=== PATIENT | male | born 1955 | race Two or more races ===

== ENCOUNTER 2017-04-08 20:47 | Emergency (ER) | payer OTHER ==
[~2017-04-08] VITALS: Ht 165.1 cm; Wt 69.4 kg
[~2017-04-08 20:47] MED LIST: ALBU0.084; CLOT1CRE82; CLOTRIMAZOLE; FLUT250M9; LEVAAER4; MOME100A; NITR0.4S31 SL; POT CHLORIDE 10 MEQ
[2017-04-08 20:50] VITALS: BP 165/95
[2017-04-08] MEDS ORDERED: IPRATROPIUM BROM 0.5 MG/2.5ML INH SOL NEB ONE (21:00)
[2017-04-08] MEDS ORDERED: ALBUTEROL SULF 2.5 MG/0.5ML(0.5%) NEB SOLN NEB ONE (21:00)
[2017-04-08 21:28] LABS: Basophils # (auto) 0.1 uL; Basophils % (auto) 0.5 % (0.0-2.0); Eosinophils # (auto) 0.2 uL; Eosinophils % (auto) 1.9 % (0.0-7.0); Hematocrit 44.6 % (41.0-53.0); Hemoglobin 15.1 g/dL (13.5-17.5); Lymphocytes # (auto) 1.5 uL; Lymphocytes % (auto) 13.8 % (10.0-50.0); Mean Corpuscular Hemoglobin 29.5 pg (28.0-32.0); Mean Corpuscular Volume 86.8 fL (80.0-100.0); Mean Platelet Volume 7.8 fL (7.4-10.4); Monocytes # (auto) 0.6 uL; Monocytes % (auto) 5.6 % (0.0-12.0); Neutrophils # (auto) 8.3 uL; Neutrophils % (auto) 78.2 % (37.0-80.0); Platelet Count (auto) 277 10^3/uL (140-450); Red Cell Distribution Width 13.4 % (11.6-16.0); White Blood Cell 10.6 10^3/uL (4.4-10.8)
[2017-04-08 21:34] LABS: INR 0.96 (0.9-1.15); Partial Thromboplastin Time 25.5 sec (22.64-33.71); Prothrombin Time 10.5 sec (9.37-12.3)
[2017-04-08 21:36] LABS: Albumin 3.8 g/dL (3.4-5.0); Anion Gap 10 (5-15); Aspartate Aminotransferase 15 U/L (15-37); BUN/Creatinine Ratio 9.4; Blood Urea Nitrogen 9 mg/dL (7-18); Calcium 8.8 mg/dL (8.5-10.1); Carbon Dioxide 27 mmol/L (21-32); Chloride 105 mmol/L (98-107); GFR African American 103 mL/min; GFR Non-African American 85 mL/min; Glucose 87 mg/dL (74-106); Magnesium 2.1 mg/dL (1.6-2.6); Potassium 3.4 mmol/L (3.5-5.1); Sodium 142 mmol/L (136-145)
[2017-04-08 21:45] LABS: Alkaline Phosphatase 110 U/L (45-117); Bilirubin, Total 0.5 mg/dL (0.2-1.0); Total Protein 7.2 g/dL (6.4-8.2)
== END 2017-04-09 00:13 | disposition left against medical advice (07) ==
LOC: ER 20:47
DX: R06.02 Shortness of breath (principal); R09.81 Nasal congestion; Z53.21 Procedure and treatment not carried out due to patient leaving prior to being seen by health care provider
CPT/HCPCS: 36415; 71010; 80053; 83735; 84484; 85025; 85610; 85730; 93005; 94640

== ENCOUNTER 2017-05-20 17:10 | Emergency (ER) | payer OTHER ==
[~2017-05-20] VITALS: Ht 165.1 cm; Wt 54.4 kg
[2017-05-20 17:33] VITALS: BP 140/92
[2017-05-20 18:04] LABS: Basophils # (auto) 0 uL; Basophils % (auto) 0.3 % (0.0-2.0); Eosinophils # (auto) 0.1 uL; Eosinophils % (auto) 1.5 % (0.0-7.0); Lymphocytes # (auto) 1.2 uL; Lymphocytes % (auto) 18.1 % (10.0-50.0); Mean Corpuscular Hemoglobin 29.7 pg (28.0-32.0); Mean Corpuscular Volume 87.3 fL (80.0-100.0); Mean Platelet Volume 7.4 fL (6.9-10.8); Monocytes # (auto) 0.5 uL; Monocytes % (auto) 6.9 % (0.0-12.0); Neutrophils % (auto) 73.2 % (37.0-80.0); Nucleated Red Blood Cells % 0.1 %; Platelet Count (auto) 281 10^3/uL (140-450); Red Cell Distribution Width 13.6 % (11.8-14.3); White Blood Cell 6.8 10^3/uL (4.4-10.8)
[2017-05-20 18:23] LABS: Chloride 109 mmol/L (98-107); Potassium 3.4 mmol/L (3.5-5.1); Sodium 144 mmol/L (136-145)
[2017-05-20 18:42] LABS: B-Type Natriuretic Peptide 10.32 pg/mL (0-100)
[2017-05-20 18:50] LABS: Temperature: 24.3 C (20.0-25.0)
[2017-05-20 19:07] LABS: Albumin 3.5 g/dL (3.4-5.0); Alkaline Phosphatase 118 U/L (45-117); Anion Gap 13 (5-15); Aspartate Aminotransferase 17 U/L (15-37); BUN/Creatinine Ratio 22.4; Bilirubin, Total 0.4 mg/dL (0.2-1.0); Blood Urea Nitrogen 19 mg/dL (7-18); Calcium 8.4 mg/dL (8.5-10.1); Carbon Dioxide 22 mmol/L (21-32); GFR African American 118 mL/min; GFR Non-African American 98 mL/min; Glucose 97 mg/dL (74-106); Magnesium 2.4 mg/dL (1.6-2.6)
== END 2017-05-20 19:47 | disposition left against medical advice (07) ==
LOC: ER 17:10 → EDBD 17:10 → ER 19:47
DX: R07.89 Other chest pain (principal); Z53.21 Procedure and treatment not carried out due to patient leaving prior to being seen by health care provider
CPT/HCPCS: 36415; 80053; 83735; 83880; 84443; 84484; 85025; 93005

== ENCOUNTER 2017-12-26 21:36 | Emergency (ER) | payer OTHER ==
[~2017-12-26] VITALS: Ht 165.1 cm; Wt 70.3 kg
[2017-12-26] MEDS ORDERED: ASPirin 81 mg TAB PO ONE (22:15)
[2017-12-26 22:30] LABS: Basophils # (auto) 0 uL; Basophils % (auto) 0.6 % (0.0-2.0); Eosinophils # (auto) 0.2 uL; Eosinophils % (auto) 3.1 % (0.0-7.0); Hematocrit 42.7 % (41.0-53.0); Hemoglobin 14.4 g/dL (13.5-17.5); Lymphocytes # (auto) 1.7 uL; Lymphocytes % (auto) 26.5 % (10.0-50.0); Mean Corpuscular Hemoglobin 29.9 pg (28.0-32.0); Mean Corpuscular Hgb Conc. 33.8 g/dL (32.0-36.0); Mean Corpuscular Volume 88.4 fL (80.0-100.0); Monocytes # (auto) 0.5 uL; Monocytes % (auto) 7.5 % (0.0-12.0); Neutrophils # (auto) 4.1 uL; Neutrophils % (auto) 62.3 % (37.0-80.0); Nucleated Red Blood Cells % 0.1 %; Platelet Count (auto) 292 10^3/uL (140-450); Red Blood Cells 4.83 10^6/uL (4.5-5.90); White Blood Cell 6.6 10^3/uL (4.4-10.8)
[2017-12-26 22:39] LABS: INR 0.97 (0.9-1.15)
[2017-12-26 22:45] LABS: Alanine Aminotransferase 26 U/L (16-61); Albumin 3.5 g/dL (3.4-5.0); Anion Gap 10 (5-15); Aspartate Aminotransferase 17 U/L (15-37); BUN/Creatinine Ratio 18.8; Blood Urea Nitrogen 21 mg/dL (7-18); Calcium 8.6 mg/dL (8.5-10.1); Carbon Dioxide 23 mmol/L (21-32); Chloride 110 mmol/L (98-107); GFR African American 86 mL/min; GFR Non-African American 71 mL/min; Glucose 99 mg/dL (74-106); Magnesium 2.2 mg/dL (1.6-2.6); Potassium 3.7 mmol/L (3.5-5.1); Sodium 143 mmol/L (136-145)
[2017-12-26 22:49] LABS: Alkaline Phosphatase 96 U/L (45-117); Bilirubin, Total 0.4 mg/dL (0.2-1.0); Total Protein 7.1 g/dL (6.4-8.2)
[2017-12-26 23:01] LABS: Urine Amorphous Crystal FEW /hpf (None Seen); Urine Bacteria NONE SEEN /hpf (None Seen); Urine Blood 2+ /uL (Negative); Urine Specific Gravity 1.025 (1.001-1.035); Urine WBC 1 /hpf (0 - 3)
[2017-12-26] MEDS ORDERED: PANTOPRAZOLE 40 MG/10 ML VIAL IV ONE (23:30)
[2017-12-26 23:47] VITALS: BP 164/62
[2017-12-27] MEDS ORDERED: NITROGLYCERIN 0.4 MG SL TAB SL ONE (10:00)
== END 2017-12-27 00:06 | disposition home or self-care (01) ==
LOC: ER 21:37
DX: I25.10 Atherosclerotic heart disease of native coronary artery without angina pectoris (principal); J45.909 Unspecified asthma, uncomplicated; K21.9 Gastro-esophageal reflux disease without esophagitis; I25.2 Old myocardial infarction; R06.02 Shortness of breath; Z86.73 Personal history of transient ischemic attack (TIA), and cerebral infarction without residual deficits
CPT/HCPCS: 36415; 71045; 80053; 81001; 83735; 83880; 84443; 84484; 85025; 85379; 85610; 85730; 94761; 96374; 99285; C9113; J7030

== ENCOUNTER 2019-10-09 15:49 | Inpatient (IN) | payer OTHER ==
[~2019-10-09] VITALS: Ht 157.5 cm; Wt 62.0 kg
[2019-10-09] MEDS: MIDAZOLAM DRIP 50 mg/50mL 50 ML IV SCH (15:56)
[2019-10-09] MEDS: PROPOFOL 100 ML IV SCH (16:03)
[2019-10-09 16:20] LABS: Urine Amorphous Crystal FEW /hpf (None Seen); Urine Bacteria FEW /hpf (None Seen); Urine Blood 2+ /uL (Negative); Urine Hyaline Cast FEW /lpf (0 - 2); Urine Mucus FEW (None Seen); Urine Specific Gravity 1.016 (1.001-1.035); Urine WBC 3 /hpf (0 - 3)
[2019-10-09] MEDS ORDERED: ALBUTEROL SULF 2.5 MG/0.5ML(0.5%) NEB SOLN ONE (16:30)
[2019-10-09] MEDS ORDERED: ETOMIDATE (2MG/ML) 20ML VIAL IV ONE (16:30)
[2019-10-09] MEDS ORDERED: IPRATROPIUM BROM 0.5 MG/2.5ML INH SOL NEB ONE (16:30)
[2019-10-09] MEDS ORDERED: ALBUTEROL SULF 2.5 MG/0.5ML(0.5%) NEB SOLN NEB ONE ×2 (16:30→17:45)
[2019-10-09] MEDS ORDERED: IPRATROPIUM BROM 0.5 MG/2.5ML INH SOL ONE (16:31)
[2019-10-09] MEDS ORDERED: SODIUM CHLORIDE 0.9% 1,000 ML IV ONE ×2 (16:33)
[2019-10-09] MEDS ORDERED: NOREPINEPHRINE 8 MG/250ML KIT 250 ML IV ONE (16:44)
[2019-10-09] MEDS: NOREPINEPHRINE 8 MG/250ML KIT 250 ML IV SCH ×2 (16:49→17:06)
[2019-10-09 17:07] LABS: Basophils # (auto) 0 10 ^3/uL (0-0.2); Basophils % (auto) 0.4 % (0.0-2.0); Eosinophils # (auto) 0.1 10 ^3/uL (0-0.8); Eosinophils % (auto) 1.3 % (0.0-7.0); Hematocrit 43.9 % (41.0-53.0); Hemoglobin 14.8 g/dL (13.5-17.5); Lymphocytes # (auto) 1.7 10 ^3/uL (0.4-5.4); Lymphocytes % (auto) 16.2 % (10.0-50.0); Mean Corpuscular Hemoglobin 29.6 pg (28.0-32.0); Mean Corpuscular Hgb Conc. 33.6 g/dL (32.0-36.0); Mean Corpuscular Volume 88.1 fL (80.0-100.0); Monocytes # (auto) 0.3 10 ^3/uL (0-1.3); Monocytes % (auto) 2.5 % (0.0-12.0); Neutrophils # (auto) 8.3 10 ^3/uL (1.6-8.6); Neutrophils % (auto) 79.6 % (37.0-80.0); Nucleated Red Blood Cells % 0.1 %; Platelet Count (auto) 365 10^3/uL (140-450); Red Blood Cells 4.98 10^6/uL (4.5-5.90); Red Cell Distribution Width 14.5 % (11.8-14.3); White Blood Cell 10.4 10^3/uL (4.4-10.8)
[2019-10-09 17:21] LABS: INR 1.04 (0.9-1.15); Partial Thromboplastin Time 25.2 sec (23.64-32.05)
[2019-10-09 17:22] LABS: Albumin 3.6 g/dL (3.4-5.0); Calcium 8.4 mg/dL (8.5-10.1)
[2019-10-09 17:27] LABS: BUN/Creatinine Ratio 10.7; Bilirubin, Total 0.4 mg/dL (0.2-1.0); Total Protein 7.3 g/dL (6.4-8.2)
[2019-10-09 17:36] LABS: Potassium 6.9 mmol/L (3.5-5.1)
[2019-10-09] MEDS ORDERED: CALCIUM GLUC 4.65meq/50ml D5AE 50 ML IV ONE (17:45)
[2019-10-09] MEDS ORDERED: SODIUM BICARBONATE 8.4% INJ 50ML SYRINGE IV ONE (17:45)
[2019-10-09] MEDS ORDERED: FUROSEMIDE 20 MG/2 ML VIAL IV ONE (17:45)
[2019-10-09] MEDS ORDERED: InsuLIN REG 1unit/0.01ml Soln (100units/ml) IV ONE (17:45)
[2019-10-09] MEDS ORDERED: SODIUM ZIRCONIUM CYCL 10 GM PAK PO ONE (17:45)
[2019-10-09] MEDS ORDERED: DEXTROSE (50%) 50ML SYRG IV ONE (17:45)
[2019-10-09] MEDS ORDERED: HEPARIN SODIUM (PORCINE) 5000 UNITS/ML 1ML VIAL IV ONE (18:15)
[2019-10-09 18:31] VITALS: BP 130/86
[2019-10-09 19:09] VITALS: BP 120/83
[2019-10-09] MEDS ORDERED: SODIUM BICARBONATE 8.4 % INJ 50ML VIAL IV ONE (19:15)
[2019-10-09 19:46] VITALS: BP 104/74
[2019-10-09 22:20] VITALS: BP 106/67
[2019-10-10] VITALS (11 sets, daily range): BP systolic 100–123; BP diastolic 64–81
[2019-10-10] MEDS ORDERED: HEPARIN DRIP/D5W 100UNITS/ML 250 ML IV SCH (03:19)
[2019-10-10] MEDS: SODIUM CHLORIDE 0.9% 1,000 ML IV SCH ×2 (03:41→14:31)
[2019-10-10] MEDS ORDERED: NITROGLYCERIN 0.4 MG SL TAB SL PRN (03:45)
[2019-10-10] MEDS ORDERED: ONDANSETRON HCL 4 MG/2 ML VIAL IV PRN (03:45)
[2019-10-10] MEDS ORDERED: MORPHINE SULF INJ 2 MG/ML SYRINGE 1ML IV PRN (03:45)
[2019-10-10] MEDS ORDERED: MORPHINE SULFATE 4 MG/ML SYR/VIAL IV PRN (03:45)
[2019-10-10] MEDS ORDERED: HEPARIN SODIUM (PORCINE) 5000 UNITS/ML 1ML VIAL ONE (04:10)
[2019-10-10 04:23] LABS: Basophils # (auto) 0 10 ^3/uL (0-0.2); Basophils % (auto) 0.2 % (0.0-2.0); Eosinophils # (auto) 0 10 ^3/uL (0-0.8); Eosinophils % (auto) 0.2 % (0.0-7.0); Hematocrit 41.1 % (41.0-53.0); Hemoglobin 13.9 g/dL (13.5-17.5); Lymphocytes # (auto) 1.2 10 ^3/uL (0.4-5.4); Lymphocytes % (auto) 9.8 % (10.0-50.0); Mean Corpuscular Hemoglobin 29.2 pg (28.0-32.0); Mean Corpuscular Hgb Conc. 33.9 g/dL (32.0-36.0); Monocytes # (auto) 0.8 10 ^3/uL (0-1.3); Monocytes % (auto) 6.3 % (0.0-12.0); Neutrophils # (auto) 10.2 10 ^3/uL (1.6-8.6); Neutrophils % (auto) 83.5 % (37.0-80.0); Platelet Count (auto) 371 10^3/uL (140-450); Red Blood Cells 4.78 10^6/uL (4.5-5.90); Red Cell Distribution Width 14.6 % (11.8-14.3); White Blood Cell 12.2 10^3/uL (4.4-10.8)
[2019-10-10 04:30] LABS: Potassium 3.4 mmol/L (3.5-5.1)
[2019-10-10 04:38] LABS: Albumin 3.2 g/dL (3.4-5.0); BUN/Creatinine Ratio 17.5; Bilirubin, Total 0.5 mg/dL (0.2-1.0); Calcium 8.1 mg/dL (8.5-10.1); Total Protein 6.4 g/dL (6.4-8.2)
[2019-10-10] MEDS: SODIUM CHLOR 0.9% PF (SALINE LOCK) 10ML VIAL/SYR IV SCH ×3 (06:00→21:41)
--- NOTE | 2019-10-10 06:20 | NUR ---
Respiratory note: RECEIVED PATIENT ON V12 ESPRIT VENT ORALLY INTUBATED WITH AN 8.0 ETT SECURED VIA DILAN AT THE 23CM MARKING AT THE LIP, AND MECHANICALLY VENTILATED WITH THE CHARTED SETTINGS. SPO2 99%, LUNG SOUNDS GREATLY DIM T/O, NO SECRETIONS WHEN SUCTIONED. SKIN IS WARM/DRY TO THE TOUCH AND IS INTACT NEAR DILAN SITE. THERE IS A NGT IN THE RIGHT NARE AND SECURED TO THE ETT, AND A TRIPLE LUMEN CENTRAL LINE IS PLACED IN THE RIGHT IJ. NO OTHER ADVANCE ACCESS LINES NOTE. NO NEW AM CXR TO ASSESS. PATIENT IS RESPONSIVE TO TACTILE STIMULI BUT UNRESPONSIVE TO VERBAL STIMULI, AND IS SEDATED ON VERSED AND PROPOFOL DRIPS. HE IS AGITATED AT THIS TIME, WITH CONSTANTLY HIGH PIP POST SUCTIONING. VENT IS PLUGGED INTO RED OUTLET AND ALL ALARMS ARE SET AND AUDIBLE. WILL CONTINUE TO ASSESS PATIENT WELL VENTILATOR FUNCTION.
[2019-10-10] MEDS ORDERED: POTASSIUM CHLORIDE 20 MEQ, LIDOCAINE 1% (LOCAL ANESTH.) 2 ML in SODIUM CHL 0.9% 100 ML IV ONE (10:00)
[2019-10-10] MEDS ORDERED: DEXTROSE (50%) 50ML SYRG IV PRN (10:00)
[2019-10-10] MEDS ORDERED: cefTRIAXone 1GM/50ML D5W 50 ML IV SCH (10:00)
[2019-10-10] MEDS ORDERED: PANTOPRAZOLE 40 MG/10 ML VIAL INJ IV ONE (10:15)
[2019-10-10] MEDS: AZITHROMYCIN 500MG/ 250ML 250 ML IV SCH (10:38)
[2019-10-10 11:01] LABS: INR 1.03 (0.9-1.15); Partial Thromboplastin Time 27.8 sec (23.64-32.05)
[2019-10-10 11:57] LABS: INR 1.12 (0.9-1.15); Partial Thromboplastin Time 64.1 sec (23.64-32.05)
[2019-10-10] MEDS: ACCU-CHEK COMFORT CURVE STRIP VI SCH ×2 (12:00→18:07)
[2019-10-10] MEDS: InsuLIN REG 1unit/0.01ml Soln (100units/ml) SC SCH ×2 (12:00→18:00)
[2019-10-10] MEDS: HEPARIN DRIP/D5W 100UNITS/ML 250 ML IV SCH (12:10)
[2019-10-10] MEDS ORDERED: ACETAMINOPHEN 650 mg PER 20 mL UD GT ONE ×2 (14:00→21:00)
[2019-10-10] MEDS: MIDAZOLAM DRIP 50 mg/50mL 50 ML IV SCH (16:39)
[2019-10-10] MEDS: PROPOFOL 100 ML IV SCH (17:09)
[2019-10-10 17:25] LABS: INR 1.16 (0.9-1.15)
[2019-10-10 17:49] LABS: Partial Thromboplastin Time 112.6 sec (23.64-32.05)
[2019-10-10] MEDS: ALBUTEROL SULF 2.5 MG/0.5ML(0.5%) NEB SOLN NEB PRN (22:07)
[2019-10-10] MEDS: IPRATROPIUM BROM 0.5 MG/2.5ML INH SOL NEB PRN (22:07)
[2019-10-11 00:20] VITALS: BP 132/83
[2019-10-11] MEDS: SODIUM CHLORIDE 0.9% 1,000 ML IV SCH ×3 (00:37→19:41)
[2019-10-11] MEDS: ACCU-CHEK COMFORT CURVE STRIP VI SCH ×4 (00:37→16:38)
[2019-10-11 01:15] LABS: INR 1.14 (0.9-1.15); Partial Thromboplastin Time 62.7 sec (23.64-32.05)
[2019-10-11 02:00] VITALS: BP 114/65
[2019-10-11 04:10] VITALS: BP 120/69
[2019-10-11 05:29] LABS: Basophils # (auto) 0 10 ^3/uL (0-0.2); Basophils % (auto) 0.3 % (0.0-2.0); Eosinophils # (auto) 0.3 10 ^3/uL (0-0.8); Eosinophils % (auto) 2.7 % (0.0-7.0); Hematocrit 37.3 % (41.0-53.0); Hemoglobin 12.5 g/dL (13.5-17.5); Lymphocytes # (auto) 1.2 10 ^3/uL (0.4-5.4); Lymphocytes % (auto) 10.1 % (10.0-50.0); Mean Corpuscular Hgb Conc. 33.5 g/dL (32.0-36.0); Mean Corpuscular Volume 86.4 fL (80.0-100.0); Monocytes # (auto) 0.8 10 ^3/uL (0-1.3); Monocytes % (auto) 6.7 % (0.0-12.0); Neutrophils # (auto) 9.2 10 ^3/uL (1.6-8.6); Neutrophils % (auto) 80.2 % (37.0-80.0); Platelet Count (auto) 241 10^3/uL (140-450); Red Blood Cells 4.31 10^6/uL (4.5-5.90); Red Cell Distribution Width 14.5 % (11.8-14.3); White Blood Cell 11.4 10^3/uL (4.4-10.8)
[2019-10-11 05:42] LABS: Potassium 3.2 mmol/L (3.5-5.1)
[2019-10-11 05:46] LABS: Albumin 2.4 g/dL (3.4-5.0); BUN/Creatinine Ratio 11.6
[2019-10-11 05:58] LABS: Bilirubin, Total 0.7 mg/dL (0.2-1.0); Total Protein 5.8 g/dL (6.4-8.2)
[2019-10-11] MEDS: InsuLIN REG 1unit/0.01ml Soln (100units/ml) SC SCH ×4 (06:00→16:38)
[2019-10-11] MEDS ORDERED: ACETAMINOPHEN 650 mg PER 20 mL UD GT PRN (06:00)
[2019-10-11] MEDS: SODIUM CHLOR 0.9% PF (SALINE LOCK) 10ML VIAL/SYR IV SCH ×3 (06:12→22:12)
[2019-10-11 06:15] VITALS: BP 95/59
[2019-10-11 07:36] VITALS: BP 101/65
[2019-10-11 07:46] LABS: INR 1.12 (0.9-1.15)
--- NOTE | 2019-10-11 08:20 | NUR ---
Respiratory note: CPAP TRIAL BEGAN AT 0820. PT PLACED ON CPAP 5 PS 8 FI02 30%.
--- NOTE | 2019-10-11 09:00 | NUR ---
PT CPAP TRIAL. VC-600ML, NIF- -38, RSBI 23, LEAK [address] URBANO NOTIFIED AND GIVEN ORDERS TO EXTUBATE TO COOL AEROSOL 8 LPM, 30 % FI02.
[2019-10-11] MEDS: cefTRIAXone 1GM/50ML D5W 50 ML IV SCH (09:38)
[2019-10-11 09:39] LABS: INR 1.09 (0.9-1.15); Partial Thromboplastin Time 37.5 sec (23.64-32.05)
[2019-10-11] MEDS: PANTOPRAZOLE 40 MG/10 ML VIAL INJ IV SCH (09:42)
[2019-10-11] MEDS: AZITHROMYCIN 500MG/ 250ML 250 ML IV SCH (09:42)
[2019-10-11] MEDS: HEPARIN DRIP/D5W 100UNITS/ML 250 ML IV SCH (10:20)
[2019-10-11] MEDS: ASPirin 81 mg TAB PO SCH (12:22)
[2019-10-11] MEDS ORDERED: POTASSIUM CHLORIDE 20 MEQ, LIDOCAINE 1% (LOCAL ANESTH.) 2 ML in SODIUM CHL 0.9% 100 ML IV ONE (12:45)
[2019-10-11] MEDS ORDERED: POTASSIUM EFFERVESENT TAB 25 MEQ PO ONE (16:00)
[2019-10-11 16:46] LABS: INR 1.07 (0.9-1.15)
[2019-10-11] MEDS ORDERED: ZOLPIDEM TARTRATE 5 MG TAB PO PRN (17:45)
[2019-10-11] MEDS: LORazepam 0.5 MG TAB PO PRN (17:56)
[2019-10-11] MEDS: IPRATROPIUM BROM 0.5 MG/2.5ML INH SOL NEB PRN (22:23)
[2019-10-11] MEDS: ALBUTEROL SULF 2.5 MG/0.5ML(0.5%) NEB SOLN NEB PRN (22:23)
--- NOTE | 2019-10-11 23:47 | NUR ---
Telemetry admit from ER KEARA SANTOS admitted to Telemetry unit after SBAR received. Patient oriented to Haydee Armas primary RN, unit, room, bed, and unit policies regarding patient care and visiting hours. Patient now on continuous telemetry monitoring, tele box # [[id number]] and telemetry reading on arrival to unit is [ST 104]. Patient placed on bedside oxygen, weighed by bedscale and encouraged to call if they need something. All questions and concerns addressed, patient verbalized understanding. Note: PATIENT CAME UP TO FLOOR VIA HOSPITAL BED WITH NO TYLER CATH. REMOVED PATIENT FROM RECTAL THERMOMETER. NO OPEN WOUND NOTED. PARTIAL LINEN CHANGED. PATIENT IS ON HEPARIN DRIP @ 9ML/HR. ONE FAMILY AT BEDSIDE. BED IN LOWEST POSITION WITH SIDE RAILS UP X 2. CALL LEE WITHIN REACH. ALARM ON. CONTINUE TO MONITOR FOR CHANGES Q1H AND PRN.
--- NOTE | 2019-10-11 23:55 | NUR ---
PHLEBOTOMY AT BEDSIDE.
[2019-10-12] VITALS (9 sets, daily range): BP systolic 110–140; BP diastolic 67–79
[2019-10-12 00:11] LABS: INR 1.05 (0.9-1.15)
[2019-10-12] MEDS: ACCU-CHEK COMFORT CURVE STRIP VI SCH ×5 (00:23→23:55)
--- NOTE | 2019-10-12 00:25 | NUR ---
ACCU-CHECK, BS 78. NO COVERAGE. CONTINUE TO MONITOR.
--- NOTE | 2019-10-12 00:46 | NUR ---
LAB RESULT OUT, NO APTT RESULT OUT, CALLED LAB CENTER, ADD APTT ON THE TEST, WAITING FOR RESULT. CONTINUE TO MONITOR.
[2019-10-12] MEDS ORDERED: ALBUAER3 IN (01:00)
[2019-10-12] MEDS ORDERED: PRED-158 PO (01:00)
--- NOTE | 2019-10-12 01:13 | NUR ---
APTT RESULT 47.2, INCREASED 2ML/HR PER PROTOCOL. CONTINUE TO MONITOR.
[2019-10-12] MEDS: IPRATROPIUM BROM 0.5 MG/2.5ML INH SOL NEB PRN ×2 (02:04→11:53)
[2019-10-12] MEDS: ALBUTEROL SULF 2.5 MG/0.5ML(0.5%) NEB SOLN NEB PRN ×2 (02:04→11:54)
--- NOTE | 2019-10-12 02:14 | NUR ---
PATIENT C/O HARD TO BREATH WITH PRESSURE ON HIS CHEST, PATIENT SHOWED SOB NOW AND STATED THE OXYGEN MASK DID NOT HELP. VITALS, TEMP 98.7, HR 101, RR 24, BP 140/75, O2 SAT 99% ON 10L/35% COOL HUMIDIFIER MASK. EKG DONE, SHOWED SR 97. RT PAGED, CAME CHECKED PATIENT AND BREATHING TREATMENT PROVIDED. PATIENT STATED MORE BETTER. BUT STILL FEELING PRESSURE ON THE CHEST. WILL PAGE HOSPITALIST. CONTINUE TO MONITOR.
--- NOTE | 2019-10-12 02:19 | NUR ---
HOSPITALIST Called/paged RASHAD ORTIZ called re:PATIENT STARTED SOB AND PRESSURE ON CHEST. Waiting for call back. Continue care.
--- NOTE | 2019-10-12 02:32 | NUR ---
PATIENT TRIED, AND URINATED 500ML CLEAR AND YELLOW URINE. PATIENT STATED MUCH MORE BETTER NOW. NO PRESSURE ON HIS CHEST AFTER BREATHING TREATMENT. URINE SAMPLE COLLECTED AND SENT. CONTINUE TO MONITOR.
--- NOTE | 2019-10-12 02:52 | NUR ---
HOSPITALIST returned call RASHAD ORTIZ returned call, updated on patient status and reason for call, orders received. D/C NS 100ML/HR IVF. Continue care.
[2019-10-12 03:07] LABS: Protein, Urine 14.1 mg/dL (0.0-11.9)
[2019-10-12 03:15] LABS: Urine Bacteria FEW /hpf (None Seen); Urine Blood 2+ /uL (Negative); Urine Mucus FEW (None Seen); Urine Specific Gravity 1.013 (1.001-1.035); Urine WBC 5 /hpf (0 - 3)
[2019-10-12 05:49] LABS: Basophils # (auto) 0 10 ^3/uL (0-0.2); Basophils % (auto) 0.4 % (0.0-2.0); Eosinophils # (auto) 0.3 10 ^3/uL (0-0.8); Eosinophils % (auto) 3.4 % (0.0-7.0); Hematocrit 32.7 % (41.0-53.0); Hemoglobin 11.4 g/dL (13.5-17.5); Lymphocytes # (auto) 1.2 10 ^3/uL (0.4-5.4); Lymphocytes % (auto) 14.1 % (10.0-50.0); Mean Corpuscular Hemoglobin 30.3 pg (28.0-32.0); Mean Corpuscular Volume 86.6 fL (80.0-100.0); Monocytes # (auto) 0.5 10 ^3/uL (0-1.3); Monocytes % (auto) 6.5 % (0.0-12.0); Neutrophils # (auto) 6.3 10 ^3/uL (1.6-8.6); Neutrophils % (auto) 75.6 % (37.0-80.0); Platelet Count (auto) 218 10^3/uL (140-450); Red Blood Cells 3.77 10^6/uL (4.5-5.90); Red Cell Distribution Width 14.6 % (11.8-14.3); White Blood Cell 8.3 10^3/uL (4.4-10.8)
[2019-10-12] MEDS: InsuLIN REG 1unit/0.01ml Soln (100units/ml) SC SCH ×5 (06:00→23:55)
[2019-10-12 06:06] LABS: Potassium 3.1 mmol/L (3.5-5.1)
[2019-10-12] MEDS: SODIUM CHLOR 0.9% PF (SALINE LOCK) 10ML VIAL/SYR IV SCH ×3 (06:07→21:45)
--- NOTE | 2019-10-12 06:08 | NUR ---
ACCU-CHECK, BS 87. NO COVERAGE. CONTINUE TO MONITOR.
[2019-10-12 06:29] LABS: Albumin 2.2 g/dL (3.4-5.0); Bilirubin, Total 0.5 mg/dL (0.2-1.0); Calcium 7.8 mg/dL (8.5-10.1); Total Protein 5.7 g/dL (6.4-8.2)
[2019-10-12 06:39] LABS: BUN/Creatinine Ratio 12.1
--- NOTE | 2019-10-12 06:53 | NUR ---
CALLED LAB CENTER TO REMIND THE LAB TEST PTPTT DUE AT 0700. CONTINUE TO MONITOR.
[2019-10-12 07:12] LABS: INR 1.05 (0.9-1.15); Partial Thromboplastin Time 61.5 sec (23.64-32.05)
--- NOTE | 2019-10-12 07:15 | NUR ---
Opening shift note Assumed care of patient from NOC RN. Patient resting in bed, AOx4, No S/S of distress, SOB or pain,bed is in lowest locked position, and call light is within reach.Heparin drip infusing at 11ml/hr,Oxygen at 10 liters 35% Aerosol mask,Updated patient on plan of care and patient verbalized understanding. Will continue to monitor Q1hr and PRN.
--- NOTE | 2019-10-12 07:30 | NUR ---
PTT result available,61.5,no changes,drip kept at 11 ml/hr.
--- NOTE | 2019-10-12 08:15 | NUR ---
Patient requesting to go rest room to have a bowel movement,Paged RT,per RT can put patient on a cannula at 3 liters, patient connected to 3 liters cannula long tubing, ambulated to rest room gait steady,no distress no discomfort. Addendum: 10/12/19 at 1054 by Yareli Davis RN RN @ 4 liters not 3 liters
--- NOTE | 2019-10-12 08:30 | NUR ---
PATIENT BACK TO BED,TOLERATED ACTIVITY,AND OXYGEN AT 3 LITERS ,NO DISTRESS,NO DISCOMFORT,DANGLED AT BEDSIDE TO EAT BREAKFAST. Addendum: 10/12/19 at 1054 by Yareli Davis RN RN @ 4 liters not 3 liters
--- NOTE | 2019-10-12 09:00 | NUR ---
Juan AT BEDSIDE O2 SATURATION CHECKED,SHOWING 98% AT 3 LITERS NASAL CANNULA Addendum: 10/12/19 at 1053 by Yareli Davis RN RN @ 4liters not 3 liters
--- NOTE | 2019-10-12 09:10 | NUR ---
Respiratory note: ASSESSED PT FOR PRN TX, PATIENT WAS AWAKE AND ALERT, NO RESP DISTRESS NOTED. HR 91, RR 20, SPO2 99% ON 4L N/C. TITRATED FIO2 TO 2L, RN INFORMED. NO INDICATION FOR TX AT THIS TIME. PT KNOWS TO HAVE RT PAGED IF TX IS NEEDED.
[2019-10-12] MEDS: ASPirin 81 mg TAB PO SCH (09:57)
[2019-10-12] MEDS: PANTOPRAZOLE 40 MG/10 ML VIAL INJ IV SCH (09:57)
[2019-10-12] MEDS: cefTRIAXone 1GM/50ML D5W 50 ML IV SCH (09:57)
[2019-10-12] MEDS: AZITHROMYCIN 250 MG TAB PO SCH (09:58)
--- NOTE | 2019-10-12 11:45 | NUR ---
DR. BURLESON INFORMED OF POTASSIUM 3.1,RECEIVED ORDER
[2019-10-12] MEDS ORDERED: POTASSIUM EFFERVESENT TAB 25 MEQ PO ONE (12:00)
--- NOTE | 2019-10-12 15:00 | NUR ---
DANGLES AT BEDSIDE AD MARIANGEL,OXYGEN REMAINS AT 2 LITERS NASAL CANNULA NO SOB NO DISTRESS.
[2019-10-12] MEDS: LORazepam 0.5 MG TAB PO PRN (17:57)
[2019-10-12] MEDS ORDERED: POTASSIUM CHL 20 Meq TABLET PO ONE (18:45)
--- NOTE | 2019-10-12 19:19 | NUR ---
STATUS UNCHANGED NO DISTRESS, NO DISCOMFORT.REPORT GIVEN TO INCOMING NOC SHIFT RN
--- NOTE | 2019-10-12 19:30 | NUR ---
RECEIVED PATIENT FROM DAY SHIFT RN. PATIENT RESTING IN BED. NO S/S OF DISTRESS NOTED. DENIED PAIN FOR NOW. REINFORCED NPO AFTER MIDNIGHT FOR PROCEDURE TOMORROW. PATIENT VERBALIZED UNDERSTANDING. POC INSTRUCTED AND ENCOURAGED PATIENT TO CALL FOR [employer] IF NEEDED. BED IN LOWEST POSITION WITH SIDE RAILS UP X 2. CALL LEE WITHIN REACH. ALARM ON. CONTINUE TO MONITOR FOR CHANGES Q1H AND PRN.
--- NOTE | 2019-10-12 20:00 | NUR ---
Respiratory note: PT ASSESSED FOR PRN MED NEB TX. HR 89, RR 16, SPO2 97% ON 2L NC. NO SIGNS OF ANY RESPIRATORY DISTRESS NOTED. ADVISED PT TO CALL IF TX IS NEEDED. RT NAME AND PAGER NUMBER WRITTEN O N PT'S BOARD.
--- NOTE | 2019-10-12 21:46 | NUR ---
RIJ CENTRAL LINE FLUSHED WITH NS. PATIENT TOLERATED WELL. DENIED PAIN FOR NOW. CONTINUE TO MONITOR.
--- NOTE | 2019-10-12 23:56 | NUR ---
ACCU-CHECK, BS 80. NO COVERAGE. CONTINUE TO MONITOR.
--- NOTE | 2019-10-13 00:13 | NUR ---
RT PAGED FOR BREATHING TREATMENT SINCE PATIENT C/O FEELING ASTHMA ATTACH AFTER BACK FROM BATHROOM. CONTINUE TO MONITOR.
--- NOTE | 2019-10-13 00:14 | NUR ---
REINFORCED PATIENT NPO FROM NOW ON. WATER AND FOOD REMOVED FROM BEDSIDE. PATIENT VERBALIZED UNDERSTANDING. CONTINUE TO MONITOR.
--- NOTE | 2019-10-13 00:16 | NUR ---
RT AT BEDSIDE.
[2019-10-13] MEDS: IPRATROPIUM BROM 0.5 MG/2.5ML INH SOL NEB PRN ×2 (00:36→14:00)
[2019-10-13] MEDS: ALBUTEROL SULF 2.5 MG/0.5ML(0.5%) NEB SOLN NEB PRN ×2 (00:36→14:00)
--- NOTE | 2019-10-13 03:12 | NUR ---
PATIENT SLEEPING. NO S/S OF DISTRESS NOTED. BREATHING EVEN AND UNLABORED. CONTINUE TO MONITOR.
[2019-10-13 05:03] LABS: Basophils # (auto) 0 10 ^3/uL (0-0.2); Basophils % (auto) 0.5 % (0.0-2.0); Eosinophils # (auto) 0.3 10 ^3/uL (0-0.8); Eosinophils % (auto) 6.7 % (0.0-7.0); Hematocrit 34.8 % (41.0-53.0); Hemoglobin 11.9 g/dL (13.5-17.5); Lymphocytes # (auto) 1.1 10 ^3/uL (0.4-5.4); Lymphocytes % (auto) 22.6 % (10.0-50.0); Mean Corpuscular Hemoglobin 29.3 pg (28.0-32.0); Mean Corpuscular Hgb Conc. 34.1 g/dL (32.0-36.0); Mean Corpuscular Volume 85.7 fL (80.0-100.0); Monocytes # (auto) 0.4 10 ^3/uL (0-1.3); Monocytes % (auto) 7.7 % (0.0-12.0); Neutrophils # (auto) 3.1 10 ^3/uL (1.6-8.6); Neutrophils % (auto) 62.5 % (37.0-80.0); Nucleated Red Blood Cells % 0.1 %; Platelet Count (auto) 260 10^3/uL (140-450); Red Blood Cells 4.06 10^6/uL (4.5-5.90); Red Cell Distribution Width 14.5 % (11.8-14.3)
--- NOTE | 2019-10-13 05:20 | NUR ---
TOTAL BED LINEN CHANGED BY BLASTING HELPER WELL PATIENT GOWN. PATIENT TOLERATED WELL. CONTINUE TO MONITOR.
[2019-10-13 05:22] LABS: Anion Gap 6 (5-15); BUN/Creatinine Ratio 14.5; Blood Urea Nitrogen 11 mg/dL (7-18); Calcium 8.3 mg/dL (8.5-10.1); Carbon Dioxide 25 mmol/L (21-32); Chloride 109 mmol/L (98-107); GFR African American 133 mL/min; GFR Non-African American 110 mL/min; Glucose 90 mg/dL (74-106); Potassium 3.4 mmol/L (3.5-5.1); Sodium 140 mmol/L (136-145)
[2019-10-13 05:30] VITALS: BP 142/67
[2019-10-13] MEDS: InsuLIN REG 1unit/0.01ml Soln (100units/ml) SC SCH ×3 (06:00→17:49)
[2019-10-13] MEDS: SODIUM CHLOR 0.9% PF (SALINE LOCK) 10ML VIAL/SYR IV SCH ×2 (06:27→14:00)
[2019-10-13] MEDS: ACCU-CHEK COMFORT CURVE STRIP VI SCH ×3 (06:27→17:49)
--- NOTE | 2019-10-13 06:28 | NUR ---
ACCU-CHECK, BS 82. NO COVERAGE. REMINDED PATIENT NPO NOW FOR PROCEDURE LATER. PATIENT VERBALIZED UNDERSTANDING. CONTINUE TO MONITOR.
--- NOTE | 2019-10-13 07:15 | NUR ---
Opening shift note Assumed care of patient from NOC RN. Patient resting in bed, AOx4, No S/S of distress, SOB or pain,bed is in lowest locked position, and call light is within reach,Updated patient on plan of care,nothing to eat for Heart Cath procedure,patient verbalized understanding. Will continue to monitor Q1hr and PRN.
--- NOTE | 2019-10-13 08:00 | NUR ---
PATIENT VERY ANXIOUS REFUSED TO SIGN CONSENT FOR HEART CATH IF FAMILY IS NOT HERE AT BEDSIDE,EXPLAIN OF IMPLEMENTATION OF HOSPITAL VISITOR ACCESS RESTRICTION,PATIENT STILL REFUSED,MACKENZIE CHARGE NURSE SPOKE TO PATIENT IN [place], EXPLAIN IN DETAIL DISEASE PROCESS,IMPORTANCE OF PROCEDURE AND IMPLEMENTATION OF VISITOR HOSPITAL ACCESS RESTRICTION.MACKENZIE ALSO SPOKE TO ISMA (PATIENT DAUGHTER) RE ABOVE,ISMA STATED WILL SPEAK TO DAD (KEARA) AND WILL EXPLAIN AND REASSURE PATIENT.
--- NOTE | 2019-10-13 08:35 | NUR ---
PATIENT AGREES TO SIGN CONSENT FOR LEFT HEART CATH AFTER DAUGHTER SPOKE TO HIM ,CONSENT SIGNED BY PATIENT.
[2019-10-13] MEDS: LORazepam 0.5 MG TAB PO PRN (08:41)
--- NOTE | 2019-10-13 08:41 | NUR ---
PATIENT VERY ANXIOUS,ATIVAN 0.5 MG PO GIVEN WITH SIPS OF WATER.
[2019-10-13 09:00] VITALS: BP 124/83
--- NOTE | 2019-10-13 09:10 | NUR ---
PATIENT TRANSPORTED TO MUSSEL OPENER HOLD VIA BED AND 02 AT 2 LITERS NASAL CANNULA.REPORT GIVEN TO MUSSEL OPENER RN
[2019-10-13] MEDS ORDERED: ANGIOMAX 250 MG VIAL IV ONE (10:32)
[2019-10-13] MEDS ORDERED: VERAPAMIL 2.5MG/ML INJ 2ML VIAL IV ONE (10:33)
[2019-10-13] MEDS ORDERED: SODIUM CHL 0.9% 0 ML ONE (10:33)
[2019-10-13] MEDS ORDERED: MIDAZOLAM HCL 1MG/1ML-2 ML VIAL ONE (10:33)
[2019-10-13] MEDS ORDERED: fentaNYL CITRATE 100 MCG/2 ML VL ONE (10:33)
[2019-10-13] MEDS ORDERED: LIDOCAINE 2%HCL (LOCAL ANESTH.) INJ 20ML MDV ONE (10:34)
[2019-10-13] MEDS ORDERED: IODIXANOL 320MG/ML 100ML BTL IV ONE (10:35)
[2019-10-13] MEDS ORDERED: HEPARIN SODIUM (PORCINE) 5000 UNITS/ML 1ML VIAL ONE (11:15)
--- NOTE | 2019-10-13 11:45 | NUR ---
RECEIVED REPORT FROM ALTAGRACIA RENEE RN
--- NOTE | 2019-10-13 12:15 | NUR ---
RECEIVED FROM SURGICAL DENTAL ASSISTANT VIA BED S/P LEFT HEART CATH,PATIENT AWAKE,ALERT,ORIENTED,NO DISTRESS NO DISCOMFORT,NO CHEST PAIN.LEFT RADIAL WITH TR BAND,NO BLEEDING WITH GOOD CAPILLARY REFILL.VITAL SIGNS TAKEN ORDERED.
--- NOTE | 2019-10-13 12:15 | NUR ---
POST OP VITAL SIGNS TEMP:97.8,HR94,RR20,ROOM AIR SAT 97%,BP 128/73
[2019-10-13] MEDS: cefTRIAXone 1GM/50ML D5W 50 ML IV SCH (12:27)
[2019-10-13] MEDS: AZITHROMYCIN 250 MG TAB PO SCH (12:27)
[2019-10-13] MEDS: ASPirin 81 mg TAB PO SCH (12:28)
--- NOTE | 2019-10-13 12:30 | NUR ---
POST OP VITAL SIGNS TEMP:97.0,HR98,RR20,ROOM AIR SAT 96%,BP 117/69
--- NOTE | 2019-10-13 12:30 | NUR ---
NO BLEEDING NOTED,2 ML OF AIR REMOVED FROM TR BAND,WILL CONTINUE DEFLATING EVERY 15 MINUTES AND CONTINUE MONITORING FOR ADEQUATE CIRCULATION,SENSATION AND MOTOR FUNCTION.
[2019-10-13] MEDS: PANTOPRAZOLE 40 MG/10 ML VIAL INJ IV SCH (12:36)
--- NOTE | 2019-10-13 12:45 | NUR ---
POST OP VITAL SIGNS TEMP:98.0,HR96,RR18,ROOM AIR SAT 97%,BP 143/79
[2019-10-13 13:00] VITALS: BP 128/73
--- NOTE | 2019-10-13 13:00 | NUR ---
POST OP VITAL SIGNS TEMP:97.6,HR90,RR20,ROOM AIR SAT 96%,BP 124/71
--- NOTE | 2019-10-13 13:30 | NUR ---
VASCULAR BAND DEFLATED COMPLETELY,BAND REMOVED AND GAUZE AND TEGADERM APPLIED
--- NOTE | 2019-10-13 14:00 | NUR ---
DR. STANTON HERE TO SEE AND EXAMINED PATIENT RECEIVED ORDER TO DISCHARGE PATIENT AFTER DINNER,IF PATIENT STABLE
[2019-10-13] MEDS ORDERED: LEVO750T2 PO (14:14)
[2019-10-13] MEDS ORDERED: ASPI81CH43 PO (14:15)
--- NOTE | 2019-10-13 15:00 | NUR ---
RIGHT JUGULAR CENTRAL VENOUS CATHETER REMOVED BY MACKENZIE MUSE
--- NOTE | 2019-10-13 16:35 | NUR ---
Nutrition Assessment Notes Please refer to link for full assessment notes. Est energy needs: 4592-4309 kcals (25-30 kcal/kgBW) Est protein needs: 50-62 gms/day (0.8-1.0 gm/kgBW) Will continue to monitor and reassess prn. Addendum: 10/13/19 at [address] Amended: Links added.
[2019-10-13 17:00] VITALS: BP 116/69
--- NOTE | 2019-10-13 17:55 | NUR ---
[facility] SWAB (NARES)SENT TO LAB
--- NOTE | 2019-10-13 18:45 | NUR ---
Discharge instructions given to daughter as ordered. Encourage to follow up with PMD as instructed. All questions and concerns addressed. Patient and daughter verbalized understanding. Medication reconciliation form completed and copy given to patient. IV x2 removed with catheter intact, pressure dressing applied,. Telemetry unit returned to ICU.
--- NOTE | 2019-10-13 18:50 | NUR ---
Patient taken to vehicle via wheelchair with all personal belongings, accompanied by staff and family member. daughter did not bring patient home oxygen,per patient he will be ok without oxygen ,daughter stated does not live that far. No distress noted at time of departure.
== END 2019-10-13 18:50 | disposition home or self-care (01) | DRG 190 ==
LOC: ER 15:49 → EDBD 15:49 → OVERFLOW 15:50 → WEST WING 10-11 23:19 → TELE-WESTW 10-11 23:40
PROVIDERS: ADMIT Hospitalist; ATTEND Internal Medicine
PROC: 5A1945Z Respiratory Ventilation, 24-96 Consecutive Hours (ICD-10-PCS; principal; 2019-10-09)
PROC: 0BH17EZ Insertion of Endotracheal Airway into Trachea, Via Natural or Artificial Opening (ICD-10-PCS; 2019-10-09)
PROC: 5A12012 Performance of Cardiac Output, Single, Manual (ICD-10-PCS; 2019-10-09)
PROC: 02HV33Z Insertion of Infusion Device into Superior Vena Cava, Percutaneous Approach (ICD-10-PCS; 2019-10-09)
PROC: 4A023N7 Measurement of Cardiac Sampling and Pressure, Left Heart, Percutaneous Approach (ICD-10-PCS; 2019-10-13)
PROC: B211YZZ Fluoroscopy of Multiple Coronary Arteries using Other Contrast (ICD-10-PCS; 2019-10-13)
PROC: B215YZZ Fluoroscopy of Left Heart using Other Contrast (ICD-10-PCS; 2019-10-13)
DX: I21.4 Non-ST elevation (NSTEMI) myocardial infarction (principal); J96.20 Acute and chronic respiratory failure, unspecified whether with hypoxia or hypercapnia; N17.0 Acute kidney failure with tubular necrosis; R57.0 Cardiogenic shock; R65.11 Systemic inflammatory response syndrome (SIRS) of non-infectious origin with acute organ dysfunction; I50.33 Acute on chronic diastolic (congestive) heart failure; E87.5 Hyperkalemia; I13.0 Hypertensive heart and chronic kidney disease with heart failure and stage 1 through stage 4 chronic kidney disease, or unspecified chronic kidney disease; E44.0 Moderate protein-calorie malnutrition; Z99.11 Dependence on respirator [ventilator] status; J44.1 Chronic obstructive pulmonary disease with (acute) exacerbation; E11.65 Type 2 diabetes mellitus with hyperglycemia; E87.6 Hypokalemia; N40.0 Benign prostatic hyperplasia without lower urinary tract symptoms; I25.10 Atherosclerotic heart disease of native coronary artery without angina pectoris; E11.22 Type 2 diabetes mellitus with diabetic chronic kidney disease; G93.41 Metabolic encephalopathy; I25.2 Old myocardial infarction; Z86.73 Personal history of transient ischemic attack (TIA), and cerebral infarction without residual deficits; Z99.81 Dependence on supplemental oxygen
CPT/HCPCS: 31500; 36415; 36556; 36600; 70450; 71045; 74176; 80048; 80053; 81001; 82570; 82805; 82962; 83036; 83605; 83880; 84132; 84156; 84300; 84443; 84484; 85025; 85610; 85730; 87040; 87070; 87077; 87081; 87086; 87186; 87205; 93005; 93306; 93458; 94002; 94003; 94640; 94644; 96361; 96365; 99152; 99153; 99291; C9113; G0378; J0610; J0696; J1815; J2001; J2250; J2704; Q9967

== ENCOUNTER 2021-08-14 15:09 | Emergency (ER) | payer OTHER ==
[~2021-08-14] VITALS: Ht 165.1 cm; Wt 68.0 kg
[2021-08-14 15:09] VITALS: BP 133/87
[~2021-08-14 15:09] MED LIST changes: -ALBU0.084; +ALBUAER3 IN; +ASPI81CH43 PO; -CLOT1CRE82; -CLOTRIMAZOLE; -FLUT250M9; -LEVAAER4; +LEVO750T8 PO; -MOME100A; -NITR0.4S31 SL; -POT CHLORIDE 10 MEQ; +PRED10TA PO
== END 2021-08-14 21:43 | disposition home or self-care (01) ==
LOC: ER 15:09 → EDBD 15:09 → ER 21:43
DX: R06.02 Shortness of breath (principal); R07.89 Other chest pain; J45.909 Unspecified asthma, uncomplicated; I25.10 Atherosclerotic heart disease of native coronary artery without angina pectoris; I25.2 Old myocardial infarction; Z86.73 Personal history of transient ischemic attack (TIA), and cerebral infarction without residual deficits; Z79.82 Long term (current) use of aspirin; Z79.2 Long term (current) use of antibiotics; Z79.899 Other long term (current) drug therapy
CPT/HCPCS: 71045; 93005

== ENCOUNTER 2022-05-23 19:14 | Emergency (ER) | payer BC, OTHER ==
[~2022-05-23] VITALS: Ht 157.5 cm; Wt 68.2 kg
[2022-05-23] MEDS ORDERED: IPRATROPIUM BROM 0.5 MG/2.5ML INH SOL NEB ONE (19:30)
[2022-05-23] MEDS ORDERED: ALBUTEROL SULF 2.5 MG/0.5ML(0.5%) NEB SOLN NEB ONE (19:30)
[2022-05-23] MEDS ORDERED: methylPREDNISolone SOD SUCC 125 MG/2 ML VL IV ONE (19:30)
[2022-05-23 20:08] LABS: Basophils # (auto) 0.1 10 ^3/uL (0-0.2); Eosinophils # (auto) 0.3 10 ^3/uL (0-0.8); Hemoglobin 14.7 g/dL (13.5-17.5); Lymphocytes # (auto) 1.9 10 ^3/uL (0.4-5.4); Lymphocytes % (auto) 25.1 % (10.0-50.0); Mean Corpuscular Hemoglobin 29.4 pg (28.0-32.0); Mean Corpuscular Hgb Conc. 34.3 g/dL (32.0-36.0); Mean Corpuscular Volume 85.7 fL (80.0-100.0); Monocytes # (auto) 0.5 10 ^3/uL (0-1.3); Monocytes % (auto) 6.6 % (0.0-12.0); Neutrophils # (auto) 4.9 10 ^3/uL (1.6-8.6); Neutrophils % (auto) 63.3 % (37.0-80.0); Red Blood Cells 5.02 10^6/uL (4.5-5.90); Red Cell Distribution Width 14.1 % (11.8-14.3); White Blood Cell 7.7 10^3/uL (4.4-10.8)
[2022-05-23] MEDS: MAGNESIUM SULFATE 1GM/100ML 100 ML IV SCH ×2 (20:19→21:30)
[2022-05-23 20:27] LABS: Albumin 3.7 g/dL (3.4-5.0); Calcium 9.8 mg/dL (8.5-10.1); Potassium 3.4 mmol/L (3.5-5.1)
[2022-05-23 20:30] LABS: Lactic Acid w/Reflex 3.3 mmol/L (0.4-2.0)
[2022-05-23 20:31] LABS: BUN/Creatinine Ratio 18.4; Bilirubin, Total 0.5 mg/dL (0.2-1.0)
[2022-05-23 20:42] LABS: Urine Bacteria NONE SEEN /hpf (None Seen); Urine Blood 2+ /uL (Negative); Urine Specific Gravity 1.009 (1.001-1.035); Urine WBC <1 /hpf (0 - 3)
[2022-05-23] MEDS ORDERED: SODIUM CHLORIDE 0.9% 1,000 ML IV ONE (20:45)
[2022-05-23] MEDS ORDERED: POTASSIUM CHL 20 Meq TABLET PO ONE (22:45)
[2022-05-23] MEDS ORDERED: BUDE1AER5 IN (23:04)
[2022-05-23] MEDS ORDERED: METH4PAK PO (23:04)
[2022-05-23 23:54] VITALS: BP 162/88
== END 2022-05-24 00:05 | disposition home or self-care (01) ==
LOC: EDBD 19:14 → ER 19:14
DX: J45.901 Unspecified asthma with (acute) exacerbation (principal); I25.10 Atherosclerotic heart disease of native coronary artery without angina pectoris; I25.2 Old myocardial infarction; Z86.73 Personal history of transient ischemic attack (TIA), and cerebral infarction without residual deficits
CPT/HCPCS: 36415; 36600; 71045; 80053; 81001; 82805; 83605; 83880; 84484; 85025; 93005; 96365; 96366; 96375; 99285; J2930; J3475; J7030; J7644

== ENCOUNTER 2022-07-08 06:04 | Emergency (ER) | payer BC, OTHER ==
[~2022-07-08] VITALS: Ht 160 cm; Wt 67.1 kg
[~2022-07-08 06:04] MED LIST changes: +BUDE1AER5 IN; +METH4PAK PO
[2022-07-08] MEDS ORDERED: ALBUTEROL SULF 2.5 MG/0.5ML(0.5%) NEB SOLN NEB ONE ×2 (06:15→09:30)
[2022-07-08] MEDS ORDERED: DexAMETHasone SOD PHOS 10MG/1ML VIAL INJ IV ONE (06:15)
[2022-07-08] MEDS: MAGNESIUM SULFATE 1GM/100ML 100 ML IV SCH ×2 (06:15→07:36)
[2022-07-08] MEDS ORDERED: MAGNESIUM SULFATE 1GM/100ML 100 ML IV ONE (06:16)
[2022-07-08] MEDS ORDERED: ALBUTEROL MEDNEB 2.5 mg/3ml NEB ONE ×2 (06:17→09:50)
[2022-07-08 07:22] LABS: Basophils # (auto) 0 10 ^3/uL (0-0.2); Basophils % (auto) 0.5 % (0.0-2.0); Eosinophils # (auto) 0.1 10 ^3/uL (0-0.8); Eosinophils % (auto) 1.6 % (0.0-7.0); Hematocrit 43.3 % (41.0-53.0); Hemoglobin 14.2 g/dL (13.5-17.5); Lymphocytes # (auto) 1.6 10 ^3/uL (0.4-5.4); Lymphocytes % (auto) 18.2 % (10.0-50.0); Mean Corpuscular Hemoglobin 28.5 pg (28.0-32.0); Mean Corpuscular Hgb Conc. 32.8 g/dL (32.0-36.0); Monocytes # (auto) 0.6 10 ^3/uL (0-1.3); Monocytes % (auto) 6.7 % (0.0-12.0); Neutrophils # (auto) 6.3 10 ^3/uL (1.6-8.6); Red Blood Cells 4.98 10^6/uL (4.5-5.90); Red Cell Distribution Width 15.1 % (11.8-14.3); White Blood Cell 8.6 10^3/uL (4.4-10.8)
[2022-07-08 07:35] LABS: Albumin 3.5 g/dL (3.4-5.0); BUN/Creatinine Ratio 18.7; Calcium 9.3 mg/dL (8.5-10.1); Magnesium 2.8 mg/dL (1.6-2.6); Potassium 3.4 mmol/L (3.5-5.1)
[2022-07-08 07:37] LABS: Bilirubin, Total 0.3 mg/dL (0.2-1.0); Total Protein 6.7 g/dL (6.4-8.2)
[2022-07-08 11:00] VITALS: BP 129/84
== END 2022-07-08 14:31 | disposition home or self-care (01) ==
LOC: ER 06:04 → EDBD 06:04 → ER 14:31
DX: J45.901 Unspecified asthma with (acute) exacerbation (principal); I25.10 Atherosclerotic heart disease of native coronary artery without angina pectoris; I25.2 Old myocardial infarction; Z86.73 Personal history of transient ischemic attack (TIA), and cerebral infarction without residual deficits; Z20.822 Contact with and (suspected) exposure to COVID-19
CPT/HCPCS: 36415; 71045; 80053; 83735; 83880; 84484; 85025; 87426; 87804; 93005; 94640; 96365; 96366; 96375; 99285; J1100; J3475

== ENCOUNTER 2022-07-22 08:21 | Inpatient (IN) | payer BC, OTHER ==
[~2022-07-22] VITALS: Ht 167.6 cm; Wt 71.8 kg
[2022-07-22] VITALS (8 sets, daily range): BP systolic 90–141; BP diastolic 54–83
[2022-07-22] MEDS ORDERED: EPINEPHrine HCL 250 ML IV ONE (08:30)
[2022-07-22] MEDS ORDERED: IPRATROPIUM BROM 0.5 MG/2.5ML INH SOL ONE (08:38)
[2022-07-22] MEDS ORDERED: ALBUTEROL SULF 2.5 MG/0.5ML(0.5%) NEB SOLN ONE (08:38)
[2022-07-22] MEDS: EPINEPHrine HCL 250 ML IV SCH ×2 (08:45→11:50)
[2022-07-22] MEDS ORDERED: IPRATROPIUM BROM 0.5 MG/2.5ML INH SOL NEB ONE ×3 (08:45→10:15)
[2022-07-22] MEDS ORDERED: ALBUTEROL SULF 2.5 MG/0.5ML(0.5%) NEB SOLN NEB ONE ×2 (08:45→10:15)
[2022-07-22] MEDS: MIDAZOLAM DRIP 50 mg/50mL 50 ML IV SCH (08:45)
[2022-07-22] MEDS: PROPOFOL 100 ML IV SCH ×3 (08:45→11:36)
[2022-07-22] MEDS ORDERED: FUROSEMIDE 20 MG/2 ML VIAL IV ONE (08:45)
[2022-07-22] MEDS ORDERED: MIDAZOLAM DRIP 50 mg/50mL 50 ML IV ONE (08:49)
[2022-07-22] MEDS ORDERED: AZITHROMYCIN 500MG/ 250ML 250 ML IV ONE (09:00)
[2022-07-22] MEDS ORDERED: SODIUM CHLORIDE 0.9% 1,000 ML IV ONE (09:00)
[2022-07-22] MEDS ORDERED: cefTRIAXone 1GM/50ML D5W 50 ML IV ONE (09:00)
[2022-07-22] MEDS ORDERED: MAGNESIUM SULFATE 1GM/100ML 100 ML IV ONE (09:00)
[2022-07-22 09:09] LABS: Hemoglobin 11.2 g/dL (13.5-17.5)
[2022-07-22 09:11] LABS: Hematocrit 35.9 % (41.0-53.0); Mean Corpuscular Hemoglobin 30.1 pg (28.0-32.0); Mean Corpuscular Hgb Conc. 31.2 g/dL (32.0-36.0); Mean Corpuscular Volume 96.5 fL (80.0-100.0); Red Blood Cells 3.71 10^6/uL (4.5-5.90); Red Cell Distribution Width 15.5 % (11.8-14.3); White Blood Cell 5.6 10^3/uL (4.4-10.8)
[2022-07-22 09:23] LABS: Basophils % (manual) 0 (0.0-2.0); Blast Cells 0; Reactive Lymphocytes 0
[2022-07-22 09:33] LABS: INR 1.11 (0.9-1.15)
[2022-07-22 10:02] LABS: Partial Thromboplastin Time 105.9 sec (24.6-33.4)
[2022-07-22] MEDS: MAGNESIUM SULFATE 1GM/100ML 100 ML IV SCH ×2 (10:15→11:15)
[2022-07-22 10:23] LABS: BUN/Creatinine Ratio 12.5; Potassium 4.5 mmol/L (3.5-5.1)
[2022-07-22 10:33] LABS: Urine Bacteria NONE SEEN /hpf (None Seen); Urine Blood 2+ /uL (Negative); Urine Hyaline Cast FEW /lpf (0 - 2); Urine Specific Gravity 1.016 (1.001-1.035); Urine Sperm PRESENT /hpf (None Seen); Urine WBC 3 /hpf (0 - 3); Urine WBC Clumps PRESENT /hpf (None Seen)
[2022-07-22 10:34] LABS: Bilirubin, Total 0.3 mg/dL (0.2-1.0); Total Protein 4.5 g/dL (6.4-8.2)
[2022-07-22 10:57] LABS: Lactic Acid w/Reflex 15.4 mmol/L (0.4-2.0)
[2022-07-22] MEDS: InsuLIN R (HUMAN) 100 UNITS in SODIUM CHL 0.9% 99 ML IV SCH ×3 (11:45→16:38)
[2022-07-22] MEDS: ACCU-CHEK COMFORT CURVE STRIP VI SCH ×8 (12:00→22:39)
[2022-07-22] MEDS ORDERED: NITROGLYCERIN 0.4 MG SL TAB SL PRN (14:30)
[2022-07-22] MEDS ORDERED: ONDANSETRON HCL 4 MG/2 ML VIAL IV PRN (14:30)
[2022-07-22] MEDS ORDERED: ACETAMINOPHEN 325 MG TAB PO PRN (14:30)
[2022-07-22] MEDS ORDERED: MORPHINE SULFATE INJ 2 MG/ml SYRG IV PRN (14:30)
[2022-07-22 16:18] LABS: Band Neutrophils % (manual) 16; Eosinophils % (manual) 5 (0-7); Lymphocytes % (manual) 53 (10.0-50.0); Metamyelocytes % 2; Monocytes % (manual) 4 (0-12); Myelocytes % 1
[2022-07-22 16:49] LABS: Promyelocytes % 0
[2022-07-22] MEDS: IPRATROPIUM BROM 0.5 MG/2.5ML INH SOL NEB SCH (17:54)
[2022-07-22] MEDS: ALBUTEROL SULF 2.5 MG/0.5ML(0.5%) NEB SOLN NEB SCH (17:54)
[2022-07-22 22:23] LABS: INR 0.97 (0.9-1.15); Partial Thromboplastin Time 26.8 sec (24.6-33.4)
[2022-07-22] MEDS: methylPREDNISolone SOD SUCC 40 MG/ML VL IV SCH (22:35)
[2022-07-23] VITALS (81 sets, daily range): BP systolic 88–122; BP diastolic 45–73
[2022-07-23] MEDS: ACCU-CHEK COMFORT CURVE STRIP VI SCH ×9 (00:16→20:03)
[2022-07-23] MEDS: NOREPINEPHRINE 8 MG/250ML KIT 250 ML IV PRN ×2 (00:56→15:02)
[2022-07-23] MEDS: methylPREDNISolone SOD SUCC 40 MG/ML VL IV SCH ×3 (06:00→22:08)
[2022-07-23] MEDS: ALBUTEROL SULF 2.5 MG/0.5ML(0.5%) NEB SOLN NEB SCH ×3 (06:15→18:13)
[2022-07-23] MEDS: IPRATROPIUM BROM 0.5 MG/2.5ML INH SOL NEB SCH ×3 (06:15→18:13)
[2022-07-23 08:12] LABS: Hematocrit 38.6 % (41.0-53.0); Mean Corpuscular Hemoglobin 29.1 pg (28.0-32.0); Mean Corpuscular Hgb Conc. 33.6 g/dL (32.0-36.0); Mean Corpuscular Volume 86.4 fL (80.0-100.0); Red Blood Cells 4.47 10^6/uL (4.5-5.90); White Blood Cell 24.4 10^3/uL (4.4-10.8)
[2022-07-23] MEDS: PROPOFOL 100 ML IV SCH ×3 (08:14→21:45)
[2022-07-23] MEDS: MIDAZOLAM DRIP 50 mg/50mL 50 ML IV SCH ×4 (08:14→23:33)
[2022-07-23] MEDS: fentaNYL Drip 2500mCg/250mlNS 250 ML IV SCH (08:17)
[2022-07-23 08:18] LABS: Basophils % (manual) 0 (0.0-2.0); Blast Cells 0; Eosinophils % (manual) 0 (0-7); Lymphocytes % (manual) 0 (10.0-50.0); Metamyelocytes % 0; Myelocytes % 0; Promyelocytes % 0; Reactive Lymphocytes 0
[2022-07-23 08:55] LABS: Anion Gap 11 (5-15); Carbon Dioxide 22 mmol/L (21-32); Chloride 104 mmol/L (98-107); Potassium 3.4 mmol/L (3.5-5.1); Sodium 137 mmol/L (136-145)
[2022-07-23 08:56] LABS: Alanine Aminotransferase 230 U/L (16-61); Albumin 2.8 g/dL (3.4-5.0); Alkaline Phosphatase 86 U/L (45-117); Aspartate Aminotransferase 207 U/L (15-37); BUN/Creatinine Ratio 23.1; Bilirubin, Total 0.5 mg/dL (0.2-1.0); Blood Urea Nitrogen 30 mg/dL (7-18); Calcium 8.3 mg/dL (8.5-10.1); GFR African American 71 mL/min; GFR Non-African American 59 mL/min; Glucose 176 mg/dL (74-106); Total Protein 6.2 g/dL (6.4-8.2)
[2022-07-23] MEDS ORDERED: cefTRIAXone 1GM/50ML D5W 50 ML IV SCH (09:00)
[2022-07-23] MEDS ORDERED: DEXTROSE (50%) 50ML SYRG IV PRN (09:45)
[2022-07-23] MEDS ORDERED: VANCOMYCIN PER PHARMACY 0 MG IV SCH (10:00)
[2022-07-23] MEDS: PANTOPRAZOLE 40 MG/10 ML VIAL INJ IV SCH (10:01)
[2022-07-23] MEDS: ASPirin 81 mg TAB PO SCH (10:01)
[2022-07-23] MEDS: AZITHROMYCIN 500MG/ 250ML 250 ML IV SCH (10:01)
[2022-07-23] MEDS: ENOXAPARIN SOD 40 MG/0.4 ML SYRINGE SC SCH (10:02)
[2022-07-23] MEDS: D5W/SOD CHL 0.45% 1,000 ML IV SCH (11:45)
[2022-07-23] MEDS: VANCOMYCIN 1GM/250ML 250 ML IV SCH ×2 (12:03→23:09)
[2022-07-23] MEDS: InsuLIN REG 1unit/0.01ml Soln (100units/ml) SC SCH ×3 (12:05→20:13)
[2022-07-23 12:56] LABS: Band Neutrophils % (manual) 7; Monocytes % (manual) 1 (0-12)
[2022-07-23] MEDS: PIPERACILLIN-TAZOB 3.375GM 100 ML IV SCH ×2 (13:10→18:02)
[2022-07-23] MEDS ORDERED: EPINEPHrine HCL 1 MG/10 ML SYRG IV ONE (13:46)
[2022-07-23] MEDS ORDERED: SODIUM BICARBONATE 8.4% INJ 50ML SYRINGE IV ONE (13:46)
[2022-07-23] MEDS: POTASSIUM CHL 20MEQ/100ML 100 ML IV SCH ×2 (17:51→19:30)
[2022-07-24] VITALS (103 sets, daily range): BP systolic 81–136; BP diastolic 46–76
[2022-07-24] MEDS: ACCU-CHEK COMFORT CURVE STRIP VI SCH ×6 (00:08→20:00)
[2022-07-24] MEDS: InsuLIN REG 1unit/0.01ml Soln (100units/ml) SC SCH ×6 (00:11→20:00)
[2022-07-24] MEDS: PIPERACILLIN-TAZOB 3.375GM 100 ML IV SCH ×4 (00:14→17:43)
[2022-07-24] MEDS: PROPOFOL 100 ML IV SCH ×3 (02:18→18:41)
[2022-07-24] MEDS: MIDAZOLAM DRIP 50 mg/50mL 50 ML IV SCH ×6 (03:00→23:22)
[2022-07-24 03:27] LABS: Basophils # (auto) 0 10 ^3/uL (0-0.2); Basophils % (auto) 0.2 % (0.0-2.0); Eosinophils # (auto) 0 10 ^3/uL (0-0.8); Hematocrit 34.6 % (41.0-53.0); Hemoglobin 11.6 g/dL (13.5-17.5); Lymphocytes # (auto) 0.6 10 ^3/uL (0.4-5.4); Lymphocytes % (auto) 3.3 % (10.0-50.0); Mean Corpuscular Hemoglobin 29.1 pg (28.0-32.0); Mean Corpuscular Hgb Conc. 33.6 g/dL (32.0-36.0); Mean Corpuscular Volume 86.6 fL (80.0-100.0); Monocytes # (auto) 0.7 10 ^3/uL (0-1.3); Monocytes % (auto) 3.6 % (0.0-12.0); Neutrophils # (auto) 17.4 10 ^3/uL (1.6-8.6); Neutrophils % (auto) 92.9 % (37.0-80.0); Nucleated Red Blood Cells % 0.1 %; Red Blood Cells 3.99 10^6/uL (4.5-5.90); Red Cell Distribution Width 14.9 % (11.8-14.3); White Blood Cell 18.7 10^3/uL (4.4-10.8)
[2022-07-24 03:57] LABS: BUN/Creatinine Ratio 20.8; Calcium 8.3 mg/dL (8.5-10.1); Potassium 3.9 mmol/L (3.5-5.1)
[2022-07-24] MEDS: methylPREDNISolone SOD SUCC 40 MG/ML VL IV SCH ×3 (06:08→22:28)
[2022-07-24] MEDS: ALBUTEROL SULF 2.5 MG/0.5ML(0.5%) NEB SOLN NEB SCH ×2 (06:11→11:22)
[2022-07-24] MEDS: IPRATROPIUM BROM 0.5 MG/2.5ML INH SOL NEB SCH ×3 (06:12→18:05)
[2022-07-24] MEDS: fentaNYL Drip 2500mCg/250mlNS 250 ML IV SCH ×2 (06:15→13:58)
[2022-07-24] MEDS: D5W/SOD CHL 0.45% 1,000 ML IV SCH (06:30)
[2022-07-24] MEDS: EPINEPHrine HCL 250 ML IV SCH (08:45)
[2022-07-24] MEDS: ASPirin 81 mg TAB PO SCH (09:27)
[2022-07-24] MEDS: ENOXAPARIN SOD 40 MG/0.4 ML SYRINGE SC SCH (09:27)
[2022-07-24] MEDS: PANTOPRAZOLE 40 MG/10 ML VIAL INJ IV SCH (09:27)
[2022-07-24] MEDS: AZITHROMYCIN 500MG/ 250ML 250 ML IV SCH (09:28)
[2022-07-24] MEDS: VANCOMYCIN 1GM/250ML 250 ML IV SCH ×2 (10:52→23:14)
[2022-07-24] MEDS: SOD CHL 0.45% 1,000 ML IV SCH (15:15)
[2022-07-24] MEDS: ALBUTEROL MEDNEB 2.5 mg/3ml NEB NEB SCH (18:05)
[2022-07-25] VITALS (98 sets, daily range): BP systolic 84–176; BP diastolic 46–97
[2022-07-25] MEDS: ACCU-CHEK COMFORT CURVE STRIP VI SCH ×6 (00:07→21:31)
[2022-07-25] MEDS: PIPERACILLIN-TAZOB 3.375GM 100 ML IV SCH ×3 (00:48→13:00)
[2022-07-25] MEDS: SOD CHL 0.45% 1,000 ML IV SCH ×3 (01:45→20:14)
[2022-07-25] MEDS: InsuLIN REG 1unit/0.01ml Soln (100units/ml) SC SCH ×6 (04:00→21:40)
[2022-07-25 04:07] LABS: Basophils # (auto) 0 10 ^3/uL (0-0.2); Eosinophils # (auto) 0 10 ^3/uL (0-0.8); Hematocrit 30.6 % (41.0-53.0); Hemoglobin 10.6 g/dL (13.5-17.5); Lymphocytes # (auto) 0.5 10 ^3/uL (0.4-5.4); Lymphocytes % (auto) 3.3 % (10.0-50.0); Mean Corpuscular Hgb Conc. 34.7 g/dL (32.0-36.0); Mean Corpuscular Volume 86.4 fL (80.0-100.0); Monocytes # (auto) 0.6 10 ^3/uL (0-1.3); Monocytes % (auto) 3.7 % (0.0-12.0); Neutrophils # (auto) 15.1 10 ^3/uL (1.6-8.6); Nucleated Red Blood Cells % 0.1 %; Red Blood Cells 3.54 10^6/uL (4.5-5.90); Red Cell Distribution Width 14.8 % (11.8-14.3); White Blood Cell 16.2 10^3/uL (4.4-10.8)
[2022-07-25 04:29] LABS: BUN/Creatinine Ratio 28.1; Calcium 7.7 mg/dL (8.5-10.1); Potassium 4.3 mmol/L (3.5-5.1)
[2022-07-25] MEDS: methylPREDNISolone SOD SUCC 40 MG/ML VL IV SCH ×3 (06:00→21:31)
[2022-07-25] MEDS: IPRATROPIUM BROM 0.5 MG/2.5ML INH SOL NEB SCH ×3 (06:23→18:01)
[2022-07-25] MEDS: ALBUTEROL MEDNEB 2.5 mg/3ml NEB NEB SCH ×3 (06:24→18:04)
[2022-07-25] MEDS: EPINEPHrine HCL 250 ML IV SCH (08:24)
[2022-07-25] MEDS: AZITHROMYCIN 500MG/ 250ML 250 ML IV SCH (09:13)
[2022-07-25] MEDS: ASPirin 81 mg TAB PO SCH (09:13)
[2022-07-25] MEDS: PANTOPRAZOLE 40 MG/10 ML VIAL INJ IV SCH (09:13)
[2022-07-25] MEDS: ENOXAPARIN SOD 40 MG/0.4 ML SYRINGE SC SCH (09:13)
[2022-07-25] MEDS: VANCOMYCIN 1GM/250ML 250 ML IV SCH (11:22)
[2022-07-25] MEDS ORDERED: ROCURONIUM 10MG/ML 10ML VIAL IV ONE ×2 (12:42→12:45)
[2022-07-25] MEDS: MIDAZOLAM DRIP 50 mg/50mL 50 ML IV SCH ×3 (12:45→20:15)
[2022-07-25] MEDS: NOREPINEPHRINE 8 MG/250ML KIT 250 ML IV PRN (13:52)
[2022-07-26] VITALS (102 sets, daily range): BP systolic 82–121; BP diastolic 52–78
[2022-07-26] MEDS: ACCU-CHEK COMFORT CURVE STRIP VI SCH ×6 (00:17→23:06)
[2022-07-26] MEDS: VANCOMYCIN 1GM/250ML 250 ML IV SCH ×3 (00:17→23:36)
[2022-07-26] MEDS: InsuLIN REG 1unit/0.01ml Soln (100units/ml) SC SCH ×6 (00:30→23:20)
[2022-07-26] MEDS: fentaNYL Drip 2500mCg/250mlNS 250 ML IV SCH ×2 (01:14→14:21)
[2022-07-26 03:57] LABS: Basophils # (auto) 0 10 ^3/uL (0-0.2); Basophils % (auto) 0.1 % (0.0-2.0); Eosinophils # (auto) 0 10 ^3/uL (0-0.8); Hematocrit 36.4 % (41.0-53.0); Hemoglobin 12.1 g/dL (13.5-17.5); Lymphocytes # (auto) 0.4 10 ^3/uL (0.4-5.4); Lymphocytes % (auto) 2.7 % (10.0-50.0); Mean Corpuscular Hemoglobin 29.5 pg (28.0-32.0); Mean Corpuscular Hgb Conc. 33.2 g/dL (32.0-36.0); Mean Corpuscular Volume 88.8 fL (80.0-100.0); Monocytes % (auto) 7.4 % (0.0-12.0); Neutrophils # (auto) 12.7 10 ^3/uL (1.6-8.6); Neutrophils % (auto) 89.8 % (37.0-80.0); White Blood Cell 14.2 10^3/uL (4.4-10.8)
[2022-07-26 04:08] LABS: BUN/Creatinine Ratio 26.2; Potassium 4.3 mmol/L (3.5-5.1)
[2022-07-26] MEDS: methylPREDNISolone SOD SUCC 40 MG/ML VL IV SCH ×3 (05:56→23:06)
[2022-07-26] MEDS: D5W 5% 1,000 ML IV SCH ×2 (05:57→16:55)
[2022-07-26] MEDS: IPRATROPIUM BROM 0.5 MG/2.5ML INH SOL NEB SCH ×3 (06:00→18:58)
[2022-07-26] MEDS: ALBUTEROL MEDNEB 2.5 mg/3ml NEB NEB SCH ×3 (06:00→18:57)
[2022-07-26] MEDS: MIDAZOLAM DRIP 50 mg/50mL 50 ML IV SCH (08:07)
[2022-07-26] MEDS: EPINEPHrine HCL 250 ML IV SCH (08:45)
[2022-07-26] MEDS: levoFLOXacin 750MG 150 ML IV SCH (09:58)
[2022-07-26] MEDS: PANTOPRAZOLE 40 MG/10 ML VIAL INJ IV SCH (09:58)
[2022-07-26] MEDS: ENOXAPARIN SOD 40 MG/0.4 ML SYRINGE SC SCH (09:58)
[2022-07-26] MEDS: ASPirin 81 mg TAB PO SCH (09:59)
[2022-07-26] MEDS: PROPOFOL 100 ML IV SCH (11:30)
[2022-07-26] MEDS ORDERED: ALBUTEROL SULF 2.5 MG/0.5ML(0.5%) NEB SOLN NEB PRN (15:00)
[2022-07-26] MEDS ORDERED: IPRATROPIUM BROM 0.5 MG/2.5ML INH SOL NEB PRN (15:00)
[2022-07-26] MEDS ORDERED: ALBUTEROL MEDNEB 2.5 mg/3ml NEB NEB PRN (16:30)
[2022-07-27] VITALS (103 sets, daily range): BP systolic 87–130; BP diastolic 50–78
[2022-07-27] MEDS: ALBUTEROL MEDNEB 2.5 mg/3ml NEB NEB SCH ×5 (00:41→23:25)
[2022-07-27] MEDS: IPRATROPIUM BROM 0.5 MG/2.5ML INH SOL NEB SCH ×5 (00:41→23:24)
[2022-07-27] MEDS: InsuLIN REG 1unit/0.01ml Soln (100units/ml) SC SCH ×6 (00:57→20:43)
[2022-07-27] MEDS: ACCU-CHEK COMFORT CURVE STRIP VI SCH ×6 (03:22→20:00)
[2022-07-27 04:22] LABS: Hematocrit 36.8 % (41.0-53.0); Hemoglobin 12.1 g/dL (13.5-17.5); Mean Corpuscular Hemoglobin 29.5 pg (28.0-32.0); Mean Corpuscular Hgb Conc. 32.9 g/dL (32.0-36.0); Mean Corpuscular Volume 89.6 fL (80.0-100.0); Red Blood Cells 4.11 10^6/uL (4.5-5.90); Red Cell Distribution Width 15.5 % (11.8-14.3); White Blood Cell 16.2 10^3/uL (4.4-10.8)
[2022-07-27 04:24] LABS: Basophils % (manual) 0 (0.0-2.0); Blast Cells 0; Eosinophils % (manual) 0 (0-7); Metamyelocytes % 0; Promyelocytes % 0; Reactive Lymphocytes 0
[2022-07-27 04:26] LABS: BUN/Creatinine Ratio 25.6; Calcium 9.3 mg/dL (8.5-10.1)
[2022-07-27 04:44] LABS: Potassium 2.9 mmol/L (3.5-5.1)
[2022-07-27 05:22] LABS: Band Neutrophils % (manual) 7; Lymphocytes % (manual) 4 (10.0-50.0); Monocytes % (manual) 6 (0-12); Myelocytes % 2
[2022-07-27] MEDS ORDERED: FUROSEMIDE 40 MG/4 ML VIAL IV ONE (05:45)
[2022-07-27] MEDS: POTASSIUM CHL 20MEQ/100ML 100 ML IV SCH ×2 (06:21→07:45)
[2022-07-27] MEDS: methylPREDNISolone SOD SUCC 40 MG/ML VL IV SCH ×3 (06:22→22:27)
[2022-07-27] MEDS: D5W 5% 1,000 ML IV SCH ×4 (06:22→18:25)
[2022-07-27] MEDS: FREE WATER GT SCH ×5 (08:17→22:27)
[2022-07-27] MEDS: EPINEPHrine HCL 250 ML IV SCH (08:19)
[2022-07-27] MEDS: MIDAZOLAM DRIP 50 mg/50mL 50 ML IV SCH (08:20)
[2022-07-27] MEDS: levoFLOXacin 750MG 150 ML IV SCH (08:25)
[2022-07-27] MEDS: ENOXAPARIN SOD 40 MG/0.4 ML SYRINGE SC SCH (08:25)
[2022-07-27] MEDS: PANTOPRAZOLE 40 MG/10 ML VIAL INJ IV SCH (08:25)
[2022-07-27] MEDS: ASPirin 81 mg TAB PO SCH (08:26)
[2022-07-27] MEDS: PROPOFOL 100 ML IV SCH (11:30)
[2022-07-27] MEDS: DESMOPRESSIN ACET 4 MCG/1 ML AMPULE IV SCH ×2 (12:54→22:00)
[2022-07-27] MEDS ORDERED: VANCOMYCIN 1GM/250ML 250 ML IV SCH (18:00)
[2022-07-27] MEDS: NOREPINEPHRINE 8 MG/250ML KIT 250 ML IV PRN (23:23)
[2022-07-28] VITALS (98 sets, daily range): BP systolic 97–171; BP diastolic 56–90
[2022-07-28] MEDS: D5W 5% 1,000 ML IV SCH ×5 (00:15→19:32)
[2022-07-28] MEDS: FREE WATER GT SCH ×6 (03:38→22:25)
[2022-07-28] MEDS: ACCU-CHEK COMFORT CURVE STRIP VI SCH ×6 (04:00→20:19)
[2022-07-28 04:09] LABS: Hematocrit 36.4 % (41.0-53.0); Hemoglobin 12.2 g/dL (13.5-17.5); Mean Corpuscular Hemoglobin 29.9 pg (28.0-32.0); Mean Corpuscular Hgb Conc. 33.4 g/dL (32.0-36.0); Mean Corpuscular Volume 89.5 fL (80.0-100.0); Red Blood Cells 4.07 10^6/uL (4.5-5.90); Red Cell Distribution Width 15.9 % (11.8-14.3); White Blood Cell 15.3 10^3/uL (4.4-10.8)
[2022-07-28 04:10] LABS: Basophils % (manual) 0 (0.0-2.0); Blast Cells 0; Eosinophils % (manual) 0 (0-7); Metamyelocytes % 0; Promyelocytes % 0; Reactive Lymphocytes 0
[2022-07-28 04:18] LABS: Calcium 9.2 mg/dL (8.5-10.1); Potassium 4.4 mmol/L (3.5-5.1)
[2022-07-28 04:21] LABS: BUN/Creatinine Ratio 30.7
[2022-07-28] MEDS: InsuLIN REG 1unit/0.01ml Soln (100units/ml) SC SCH ×6 (04:54→20:21)
[2022-07-28 05:33] LABS: Band Neutrophils % (manual) 8; Lymphocytes % (manual) 2 (10.0-50.0); Monocytes % (manual) 9 (0-12); Myelocytes % 2
[2022-07-28] MEDS: methylPREDNISolone SOD SUCC 40 MG/ML VL IV SCH ×3 (06:00→22:25)
[2022-07-28] MEDS: fentaNYL Drip 2500mCg/250mlNS 250 ML IV SCH (06:15)
[2022-07-28] MEDS: IPRATROPIUM BROM 0.5 MG/2.5ML INH SOL NEB SCH ×3 (06:35→18:24)
[2022-07-28] MEDS: ALBUTEROL MEDNEB 2.5 mg/3ml NEB NEB SCH ×3 (06:35→18:25)
[2022-07-28] MEDS: EPINEPHrine HCL 250 ML IV SCH (07:39)
[2022-07-28] MEDS: MIDAZOLAM DRIP 50 mg/50mL 50 ML IV SCH (07:43)
[2022-07-28] MEDS: ASPirin 81 mg TAB PO SCH (09:34)
[2022-07-28] MEDS: PANTOPRAZOLE 40 MG/10 ML VIAL INJ IV SCH (09:34)
[2022-07-28] MEDS: ENOXAPARIN SOD 40 MG/0.4 ML SYRINGE SC SCH (09:34)
[2022-07-28] MEDS: levoFLOXacin 750MG 150 ML IV SCH (09:34)
[2022-07-28] MEDS: DESMOPRESSIN ACET 4 MCG/1 ML AMPULE IV SCH ×2 (10:00→22:26)
[2022-07-28] MEDS: PROPOFOL 100 ML IV SCH (10:52)
[2022-07-29] VITALS (105 sets, daily range): BP systolic 99–177; BP diastolic 55–98
[2022-07-29] MEDS: ALBUTEROL MEDNEB 2.5 mg/3ml NEB NEB SCH ×3 (00:03→18:29)
[2022-07-29] MEDS: IPRATROPIUM BROM 0.5 MG/2.5ML INH SOL NEB SCH ×3 (00:03→18:29)
[2022-07-29] MEDS: ACCU-CHEK COMFORT CURVE STRIP VI SCH ×6 (01:58→20:17)
[2022-07-29] MEDS: D5W 5% 1,000 ML IV SCH ×4 (01:58→13:00)
[2022-07-29] MEDS: InsuLIN REG 1unit/0.01ml Soln (100units/ml) SC SCH ×6 (01:59→20:18)
[2022-07-29] MEDS: FREE WATER GT SCH ×6 (02:05→22:24)
[2022-07-29] MEDS: methylPREDNISolone SOD SUCC 40 MG/ML VL IV SCH ×3 (05:29→22:23)
[2022-07-29] MEDS: fentaNYL Drip 2500mCg/250mlNS 250 ML IV SCH (06:15)
[2022-07-29 06:46] LABS: Hemoglobin 10.3 g/dL (13.5-17.5); Mean Corpuscular Hemoglobin 29.3 pg (28.0-32.0); Mean Corpuscular Volume 88.7 fL (80.0-100.0); White Blood Cell 11.1 10^3/uL (4.4-10.8)
[2022-07-29 06:56] LABS: Basophils % (manual) 0 (0.0-2.0); Blast Cells 0; Eosinophils % (manual) 0 (0-7); Myelocytes % 0; Promyelocytes % 0; Reactive Lymphocytes 0
[2022-07-29 07:04] LABS: BUN/Creatinine Ratio 36.3; Calcium 8.1 mg/dL (8.5-10.1); Potassium 4.1 mmol/L (3.5-5.1)
[2022-07-29 07:48] LABS: Band Neutrophils % (manual) 5; Lymphocytes % (manual) 2 (10.0-50.0); Metamyelocytes % 5; Monocytes % (manual) 4 (0-12)
[2022-07-29] MEDS: EPINEPHrine HCL 250 ML IV SCH (08:11)
[2022-07-29] MEDS: MIDAZOLAM DRIP 50 mg/50mL 50 ML IV SCH (08:45)
[2022-07-29] MEDS: ENOXAPARIN SOD 40 MG/0.4 ML SYRINGE SC SCH ×2 (10:00→12:19)
[2022-07-29] MEDS: levoFLOXacin 750MG 150 ML IV SCH (10:58)
[2022-07-29] MEDS: PANTOPRAZOLE 40 MG/10 ML VIAL INJ IV SCH (10:58)
[2022-07-29] MEDS: ASPirin 81 mg TAB PO SCH (10:59)
[2022-07-29] MEDS: PROPOFOL 100 ML IV SCH (11:01)
[2022-07-29] MEDS ORDERED: VANCOMYCIN 1GM/250ML 250 ML IV SCH (13:00)
[2022-07-30] VITALS (103 sets, daily range): BP systolic 93–224; BP diastolic 57–118
[2022-07-30] MEDS: IPRATROPIUM BROM 0.5 MG/2.5ML INH SOL NEB SCH ×4 (00:10→18:25)
[2022-07-30] MEDS: ALBUTEROL MEDNEB 2.5 mg/3ml NEB NEB SCH ×4 (00:10→18:25)
[2022-07-30] MEDS: InsuLIN REG 1unit/0.01ml Soln (100units/ml) SC SCH ×7 (00:15→23:41)
[2022-07-30] MEDS: ACCU-CHEK COMFORT CURVE STRIP VI SCH ×7 (00:15→23:41)
[2022-07-30] MEDS: D5W 5% 1,000 ML IV SCH ×2 (01:20→15:31)
[2022-07-30] MEDS ORDERED: hydrALAZINE HCL 20 MG/ML VL IV PRN ×2 (02:15)
[2022-07-30] MEDS: FREE WATER GT SCH ×6 (02:40→21:58)
[2022-07-30 04:13] LABS: Hematocrit 33.7 % (41.0-53.0); Hemoglobin 11.5 g/dL (13.5-17.5); Mean Corpuscular Hemoglobin 29.8 pg (28.0-32.0); Mean Corpuscular Volume 87.7 fL (80.0-100.0); Red Blood Cells 3.85 10^6/uL (4.5-5.90); Red Cell Distribution Width 15.2 % (11.8-14.3); White Blood Cell 13.2 10^3/uL (4.4-10.8)
[2022-07-30 04:18] LABS: Basophils % (manual) 0 (0.0-2.0); Blast Cells 0; Eosinophils % (manual) 0 (0-7); Promyelocytes % 0; Reactive Lymphocytes 0
[2022-07-30 04:26] LABS: Calcium 8.8 mg/dL (8.5-10.1); Potassium 4.7 mmol/L (3.5-5.1)
[2022-07-30] MEDS: methylPREDNISolone SOD SUCC 40 MG/ML VL IV SCH ×3 (05:14→21:57)
[2022-07-30] MEDS: fentaNYL Drip 2500mCg/250mlNS 250 ML IV SCH (06:15)
[2022-07-30 08:25] LABS: Band Neutrophils % (manual) 6; Lymphocytes % (manual) 5 (10.0-50.0); Metamyelocytes % 3; Monocytes % (manual) 1 (0-12); Myelocytes % 1
[2022-07-30] MEDS: MIDAZOLAM DRIP 50 mg/50mL 50 ML IV SCH (08:35)
[2022-07-30] MEDS: EPINEPHrine HCL 250 ML IV SCH (08:35)
[2022-07-30] MEDS: levoFLOXacin 750MG 150 ML IV SCH (09:15)
[2022-07-30] MEDS: PANTOPRAZOLE 40 MG/10 ML VIAL INJ IV SCH (09:15)
[2022-07-30] MEDS: ASPirin 81 mg TAB PO SCH (09:16)
[2022-07-30] MEDS: PROPOFOL 100 ML IV SCH (11:30)
[2022-07-30] MEDS ORDERED: VANCOMYCIN 1GM/250ML 250 ML IV ONE (12:45)
[2022-07-31] VITALS (107 sets, daily range): BP systolic 103–140; BP diastolic 61–76
[2022-07-31] MEDS: ALBUTEROL MEDNEB 2.5 mg/3ml NEB NEB SCH ×5 (00:17→23:45)
[2022-07-31] MEDS: IPRATROPIUM BROM 0.5 MG/2.5ML INH SOL NEB SCH ×5 (00:17→23:45)
[2022-07-31] MEDS: FREE WATER GT SCH ×2 (03:17→05:47)
[2022-07-31] MEDS: D5W 5% 1,000 ML IV SCH ×2 (03:35→16:50)
[2022-07-31] MEDS: ACCU-CHEK COMFORT CURVE STRIP VI SCH ×5 (04:00→20:06)
[2022-07-31] MEDS: InsuLIN REG 1unit/0.01ml Soln (100units/ml) SC SCH ×5 (04:00→20:07)
[2022-07-31 04:23] LABS: Hematocrit 34.3 % (41.0-53.0); Hemoglobin 11.4 g/dL (13.5-17.5); Mean Corpuscular Hemoglobin 28.7 pg (28.0-32.0); Mean Corpuscular Hgb Conc. 33.3 g/dL (32.0-36.0); Mean Corpuscular Volume 86.2 fL (80.0-100.0); Red Blood Cells 3.98 10^6/uL (4.5-5.90); Red Cell Distribution Width 14.6 % (11.8-14.3)
[2022-07-31 04:31] LABS: BUN/Creatinine Ratio 38.6; Calcium 8.1 mg/dL (8.5-10.1); Potassium 4.5 mmol/L (3.5-5.1)
[2022-07-31 04:40] LABS: Basophils % (manual) 0 (0.0-2.0); Blast Cells 0; Eosinophils % (manual) 0 (0-7); Metamyelocytes % 0; Myelocytes % 0; Promyelocytes % 0; Reactive Lymphocytes 0
[2022-07-31] MEDS: VANCOMYCIN 1GM/250ML 250 ML IV SCH ×2 (05:05→18:43)
[2022-07-31] MEDS: methylPREDNISolone SOD SUCC 40 MG/ML VL IV SCH ×3 (06:05→22:01)
[2022-07-31] MEDS: fentaNYL Drip 2500mCg/250mlNS 250 ML IV SCH (06:15)
[2022-07-31 06:44] LABS: Band Neutrophils % (manual) 13; Lymphocytes % (manual) 5 (10.0-50.0); Monocytes % (manual) 1 (0-12)
[2022-07-31] MEDS: EPINEPHrine HCL 250 ML IV SCH (08:45)
[2022-07-31] MEDS: MIDAZOLAM DRIP 50 mg/50mL 50 ML IV SCH (08:45)
[2022-07-31] MEDS: PANTOPRAZOLE 40 MG/10 ML VIAL INJ IV SCH (10:13)
[2022-07-31] MEDS: levoFLOXacin 750MG 150 ML IV SCH (10:13)
[2022-07-31] MEDS: ASPirin 81 mg TAB PO SCH (10:13)
[2022-07-31] MEDS: PROPOFOL 100 ML IV SCH (11:30)
[2022-08-01] VITALS (107 sets, daily range): BP systolic 104–126; BP diastolic 63–75
[2022-08-01] MEDS: ACCU-CHEK COMFORT CURVE STRIP VI SCH ×6 (00:13→20:00)
[2022-08-01] MEDS: InsuLIN REG 1unit/0.01ml Soln (100units/ml) SC SCH ×6 (04:00→20:00)
[2022-08-01 04:01] LABS: Hematocrit 33.5 % (41.0-53.0); Hemoglobin 11.4 g/dL (13.5-17.5); Mean Corpuscular Hemoglobin 29.2 pg (28.0-32.0); Mean Corpuscular Hgb Conc. 34.2 g/dL (32.0-36.0); Mean Corpuscular Volume 85.4 fL (80.0-100.0); Red Blood Cells 3.92 10^6/uL (4.5-5.90); Red Cell Distribution Width 14.2 % (11.8-14.3); White Blood Cell 16.9 10^3/uL (4.4-10.8)
[2022-08-01 04:19] LABS: BUN/Creatinine Ratio 41.9; Calcium 8.3 mg/dL (8.5-10.1); Potassium 4.5 mmol/L (3.5-5.1)
[2022-08-01 04:22] LABS: Basophils % (manual) 0 (0.0-2.0); Blast Cells 0; Eosinophils % (manual) 0 (0-7); Myelocytes % 0; Promyelocytes % 0; Reactive Lymphocytes 0
[2022-08-01] MEDS: methylPREDNISolone SOD SUCC 40 MG/ML VL IV SCH ×3 (05:29→21:32)
[2022-08-01] MEDS: D5W 5% 1,000 ML IV SCH ×3 (06:07→20:55)
[2022-08-01] MEDS: fentaNYL Drip 2500mCg/250mlNS 250 ML IV SCH (06:15)
[2022-08-01 06:33] LABS: Band Neutrophils % (manual) 1; Lymphocytes % (manual) 3 (10.0-50.0); Metamyelocytes % 1; Monocytes % (manual) 4 (0-12)
[2022-08-01] MEDS: IPRATROPIUM BROM 0.5 MG/2.5ML INH SOL NEB SCH ×3 (07:57→18:15)
[2022-08-01] MEDS: ALBUTEROL MEDNEB 2.5 mg/3ml NEB NEB SCH ×3 (07:57→18:15)
[2022-08-01] MEDS: MIDAZOLAM DRIP 50 mg/50mL 50 ML IV SCH (08:30)
[2022-08-01] MEDS: EPINEPHrine HCL 250 ML IV SCH (08:30)
[2022-08-01] MEDS: PANTOPRAZOLE 40 MG/10 ML VIAL INJ IV SCH (09:50)
[2022-08-01] MEDS: ASPirin 81 mg TAB PO SCH (09:50)
[2022-08-01] MEDS: levoFLOXacin 750MG 150 ML IV SCH (09:50)
[2022-08-01] MEDS: PROPOFOL 100 ML IV SCH (09:53)
[2022-08-01] MEDS: VANCOMYCIN 1GM/250ML 250 ML IV SCH (11:33)
[2022-08-02] VITALS (106 sets, daily range): BP systolic 91–114; BP diastolic 54–70
[2022-08-02] MEDS: ALBUTEROL MEDNEB 2.5 mg/3ml NEB NEB SCH ×4 (00:09→18:21)
[2022-08-02] MEDS: IPRATROPIUM BROM 0.5 MG/2.5ML INH SOL NEB SCH ×4 (00:09→18:21)
[2022-08-02] MEDS: VANCOMYCIN 1GM/250ML 250 ML IV SCH ×2 (02:25→11:50)
[2022-08-02] MEDS: InsuLIN REG 1unit/0.01ml Soln (100units/ml) SC SCH ×6 (03:31→20:00)
[2022-08-02] MEDS: ACCU-CHEK COMFORT CURVE STRIP VI SCH ×6 (03:39→20:16)
[2022-08-02 04:11] LABS: Hematocrit 33.6 % (41.0-53.0); Hemoglobin 11.2 g/dL (13.5-17.5); Mean Corpuscular Hemoglobin 28.4 pg (28.0-32.0); Mean Corpuscular Hgb Conc. 33.2 g/dL (32.0-36.0); Mean Corpuscular Volume 85.4 fL (80.0-100.0); Red Blood Cells 3.94 10^6/uL (4.5-5.90); White Blood Cell 18.4 10^3/uL (4.4-10.8)
[2022-08-02 04:16] LABS: Basophils % (manual) 0 (0.0-2.0); Blast Cells 0; Eosinophils % (manual) 0 (0-7); Promyelocytes % 0; Reactive Lymphocytes 0
[2022-08-02 04:20] LABS: BUN/Creatinine Ratio 42.5; Calcium 7.3 mg/dL (8.5-10.1); Potassium 4.5 mmol/L (3.5-5.1)
[2022-08-02] MEDS: methylPREDNISolone SOD SUCC 40 MG/ML VL IV SCH ×3 (06:11→22:25)
[2022-08-02] MEDS: fentaNYL Drip 2500mCg/250mlNS 250 ML IV SCH (06:15)
[2022-08-02] MEDS: MIDAZOLAM DRIP 50 mg/50mL 50 ML IV SCH (08:24)
[2022-08-02] MEDS: EPINEPHrine HCL 250 ML IV SCH (08:24)
[2022-08-02 08:31] LABS: Band Neutrophils % (manual) 7; Lymphocytes % (manual) 5 (10.0-50.0); Metamyelocytes % 5; Monocytes % (manual) 4 (0-12); Myelocytes % 3
[2022-08-02] MEDS: PANTOPRAZOLE 40 MG/10 ML VIAL INJ IV SCH (10:25)
[2022-08-02] MEDS: levoFLOXacin 750MG 150 ML IV SCH (10:25)
[2022-08-02] MEDS: ASPirin 81 mg TAB PO SCH (10:25)
[2022-08-02] MEDS: PROPOFOL 100 ML IV SCH (11:30)
[2022-08-02] MEDS ORDERED: ALBUTEROL SULF 2.5 MG/0.5ML(0.5%) NEB SOLN ONE (12:06)
[2022-08-02] MEDS: D5W 5% 1,000 ML IV SCH (22:25)
[2022-08-03] VITALS (55 sets, daily range): BP systolic 91–138; BP diastolic 49–72
[2022-08-03] MEDS: ALBUTEROL MEDNEB 2.5 mg/3ml NEB NEB SCH
[2022-08-03] MEDS: ACCU-CHEK COMFORT CURVE STRIP VI SCH ×4 (00:16→12:00)
[2022-08-03] MEDS: InsuLIN REG 1unit/0.01ml Soln (100units/ml) SC SCH ×5 (00:18→12:00)
[2022-08-03] MEDS: VANCOMYCIN 1GM/250ML 250 ML IV SCH (01:00)
[2022-08-03] MEDS: methylPREDNISolone SOD SUCC 40 MG/ML VL IV SCH (05:55)
[2022-08-03] MEDS: IPRATROPIUM BROM 0.5 MG/2.5ML INH SOL NEB SCH ×2 (06:48)
[2022-08-03] MEDS: MIDAZOLAM DRIP 50 mg/50mL 50 ML IV SCH (08:45)
[2022-08-03] MEDS: EPINEPHrine HCL 250 ML IV SCH (08:45)
[2022-08-03] MEDS: ASPirin 81 mg TAB PO SCH (10:52)
[2022-08-03] MEDS: PANTOPRAZOLE 40 MG/10 ML VIAL INJ IV SCH (10:53)
[2022-08-03] MEDS ORDERED: VANCOMYCIN 1GM/250ML 250 ML IV SCH (11:00)
[2022-08-03] MEDS: PROPOFOL 100 ML IV SCH (11:30)
[2022-08-03] MEDS: levoFLOXacin 750MG 150 ML IV SCH (11:38)
[2022-08-03] MEDS: D5W 5% 1,000 ML IV SCH (11:39)
[2022-08-03] MEDS ORDERED: LORazepam 2MG/ML-1ML VIAL IV PRN (13:00)
[2022-08-03] MEDS ORDERED: MORPHINE SULFATE INJ 2 MG/ml SYRG IV PRN (13:00)
== END 2022-08-03 16:12 | DRG 207 ==
LOC: ER 08:21 → EDBD 08:21 → TELE 14:49 → ICU WEST 07-23 06:04
PROVIDERS: ADMIT Nurse Practitioner Family; ATTEND Internal Medicine
PROC: 0BH17EZ Insertion of Endotracheal Airway into Trachea, Via Natural or Artificial Opening (ICD-10-PCS; principal; 2022-07-22)
PROC: 5A1955Z Respiratory Ventilation, Greater than 96 Consecutive Hours (ICD-10-PCS; 2022-07-22)
PROC: 5A12012 Performance of Cardiac Output, Single, Manual (ICD-10-PCS; 2022-07-22)
DX: J96.01 Acute respiratory failure with hypoxia (principal); G93.41 Metabolic encephalopathy; J15.6 Pneumonia due to other Gram-negative bacteria; S22.39XA Fracture of one rib, unspecified side, initial encounter for closed fracture; N17.9 Acute kidney failure, unspecified; E87.4 Mixed disorder of acid-base balance; G93.1 Anoxic brain damage, not elsewhere classified; J44.0 Chronic obstructive pulmonary disease with (acute) lower respiratory infection; E87.0 Hyperosmolality and hypernatremia; Z99.11 Dependence on respirator [ventilator] status; J93.9 Pneumothorax, unspecified; J96.02 Acute respiratory failure with hypercapnia; Z20.822 Contact with and (suspected) exposure to COVID-19; W18.39XA Other fall on same level, initial encounter; I46.9 Cardiac arrest, cause unspecified; I25.10 Atherosclerotic heart disease of native coronary artery without angina pectoris; E11.65 Type 2 diabetes mellitus with hyperglycemia; G93.2 Benign intracranial hypertension; Z86.73 Personal history of transient ischemic attack (TIA), and cerebral infarction without residual deficits; Z83.3 Family history of diabetes mellitus; Z51.5 Encounter for palliative care; Z79.82 Long term (current) use of aspirin; Y93.89 Activity, other specified; Y92.89 Other specified places as the place of occurrence of the external cause; Y99.8 Other external cause status
CPT/HCPCS: 36415; 36556; 36600; 70450; 71045; 73560; 74176; 80048; 80053; 80202; 81001; 82010; 82805; 82962; 83036; 83605; 83735; 83880; 84484; 85007; 85025; 85027; 85610; 85730; 87040; 87070; 87077; 87081; 87186; 87205; 87426; 87804; 93005; 93306; 94002; 94003; 94640; 94644; 95819; 96365; 96368; 96375; 99291; C9113; G0378; J0171; J0696; J1815; J1956; J2250; J2543; J2704; J3480